=== PATIENT | female | born 1960 | race Caucasian/White ===

== ENCOUNTER 2016-07-13 15:00 | Emergency (ER) | payer SELFPAY ==
[2016-07-13 15:10] VITALS: BP 144/86; BMI 19.8
--- NOTE | 2016-07-13 17:08 | DR.GENAD ---
HPI - PCP Primary Care Physician: NFD - Complaint/Symptoms Chief Complaint Doctors Comments: Patient admits to rash on trunk for four months; more recent lesion 1-2 weeks. Patient states that the rash itches. Chief Complaint:: PT C/O BUMPS TO BILAT ARMS, ON FACE AND BUTTOCKS. PT STATES THE BUMPS ON HER BUTTOCKS HAVE BEEN THERE FOR 3 MONTHS. PT ALSO STATES SHE DOESN 'T KNOW WHAT HAPPENED TO HER BUT THE ONES ON HER ARMS JUST CAME UP A WEEK AGO. - Source History Provided: Patient - Mode of Arrival Mode of Arrival: Ambulatory - Timing Onset of Chief Complaint: 07/06/16 PMH - PMH Past Medical History: Yes Past Medical History: Anxiety Past Medical History Comment: [place] Past Surgical History: Yes Surgical History: Hysterectomy, Ortho Surgery, Other - Family History History of Family Medical Conditions: Yes Family Medical History: Cancer - Social History Does patient currently use any type of tobacco product: Yes Have you used tobacco products in the last 12 months: Yes Does any household member use tobacco: Yes Alcohol Use: None Do you use any recreational Drugs:: No Lives With: Significant Other Lives Where: Home - infectious screening In the last 2 months have you had wt loss of >10#?: NO Have you had fever, night sweats or hemotysis?: No Have you traveled outside the country in the last 6 months?: No Isolation: Standard ROS - Review of Systems Eyes: No Symptoms Reported ENTM: No Symptoms Reported Respiratoy: No Symptoms Reported Cardiovascular: No Symptoms Reported Gastrointestinal/Abdominal: No Symptoms Reported Genitourinary: No Symptoms Reported Neurological: No Symptoms Reported Musculoskeletal: No Symptoms Reported Integumentary: Rash (dry macular, papular on trunk and upper extremity) Hematologic/Lymphatic: No Symptoms Reported Endocrine: No Symptoms Reported Psychiatric: No Symptoms Reported All Other Systems: Reviewed and Negative PE - Vital Signs Vitals: Temperature 98.7 F Pulse Rate 98 Respiratory Rate 20 Blood Pressure 144/86 O2 Sat by Pulse Oximetry 97 - General Limitations: No Limitations General Appearance: Alert, In No Apparent Distress - Head Head Exam: Normal Inspection, Atraumatic - Eyes Eye exam: Normal Appearance, PERRL, EOMI - ENT ENT Exam: Normal Exam External Ear Exam: Normal External Inspection TM/Canal Exam: Bilateral Normal Nose Exam: Normal Nose Exam Mouth Exam: Normal Inspection Throat Exam: Normal Inspection - Neck Neck Exam: Normal Inspection - Chest Chest Inspection: Normal Inspection - Respiratory Respiratory Exam: Normal Lung Sounds Bilat Respiratory Exam: Bilateral Clear to Auscultation - Cardiovascular Cardiovascular Exam: Regular Rate - Abdominal Exam Abdominal Exam: Normal Inspection Abdominal Tenderness: negative: RUQ, RLQ, LUQ, LLQ, Epigastrium, Suprapubic, Diffuse, Mild, Moderate, Severe, Other - Extremities Extremities Exam: Other (macular eczematous rash on face, hand and trunk) - Back Back Exam: Normal Inspection - Neurologic Neurological Exam: Alert, Oriented X3, CN II-XII Intact - Psychiatric Psychiatric Exam: Normal Affect - Skin Skin Exam: Warm, Dry, Intact - Diagnosis Discharge Problem: Atopic dermatitis, unspecified Qualifiers: Atopic dermatitis type: atopic neurodermatitis Qualified Code(s): L20.81 - Atopic neurodermatitis - Discharge Plan Condition: Stable - Follow ups/Referrals Follow ups/Referrals: NFD,None [Primary Care Provider] - 3 days - Instructions
[2016-07-13] MEDS ORDERED: TORADOL 30 MG VIAL IM ONE (17:19)
[2016-07-13] MEDS ORDERED: TORADOL 30 MG VIAL ONE (17:22)
== END 2016-07-13 17:41 | disposition home or self-care (01) ==
LOC: ER 15:21
DX: L20.81 Atopic neurodermatitis (principal)
CPT/HCPCS: 96372; 99282; J1885

== ENCOUNTER 2016-08-09 13:20 | Emergency (ER) | payer SELFPAY ==
[2016-08-09 13:25] VITALS: BP 133/73
--- NOTE | 2016-08-09 13:45 | DR.GENAD ---
HPI - PCP Primary Care Physician: NFD - HPI Comment HPI Comment: WORSE TODAY. NO FEVER. - Complaint/Symptoms Chief Complaint Doctors Comments: ABSCESS RIGHT FOREARM TIMES ONE DAY AND LOW BACK PAIN. Chief Complaint:: PT. C/O CHRONIC BACK PAIN AND ALSO PT. HAS AN ABSCESS TO HER RIGHT FOREARM. - Nurses notes reviewed Nurses Notes Review: Yes - Source History Provided: Patient - Mode of Arrival Mode of Arrival: Ambulatory - Timing Onset of Chief Complaint: 08/08/16 Came on: Suddenly - Duration Duration: Constant Duration: Days - Severity Severity: Moderate PMH - PMH Past Medical History: Yes Past Medical History: Anxiety Past Surgical History: Yes Surgical History: Hysterectomy, Ortho Surgery, Other Past Surgical History Comment: NECK - Family History History of Family Medical Conditions: Yes Family Medical History: Cancer - Social History Does patient currently use any type of tobacco product: Yes Have you used tobacco products in the last 12 months: Yes Type of Tobacco Use: Cigarettes How many years tobacco product used: 16 Does any household member use tobacco: No Alcohol Use: None Do you use any recreational Drugs:: No Lives With: Significant Other Lives Where: Home - infectious screening In the last 2 months have you had wt loss of >10#?: NO Have you had fever, night sweats or hemotysis?: No Have you traveled outside the country in the last 6 months?: No Isolation: Standard ROS - Review of Systems Constitutional: No Symptoms Reported. negative: Chills, Fever, Weakness, Fatigue Eyes: No Symptoms Reported. negative: Eye Pain, Discharge ENTM: No Symptoms Reported. negative: Ear Pain, Nose Discharge, Nose Congestion , Throat Pain Respiratoy: No Symptoms Reported Cardiovascular: No Symptoms Reported Gastrointestinal/Abdominal: No Symptoms Reported Genitourinary: No Symptoms Reported Neurological: No Symptoms Reported Musculoskeletal: Back Pain (LOW BACK PAIN), Muscle Pain Integumentary: Other (ABSCESS SIZE GULF BALL RIGHT FOREARM.) Hematologic/Lymphatic: No Symptoms Reported Endocrine: No Symptoms Reported All Other Systems: Reviewed and Negative PE - Vital Signs Vitals: Temperature 97.7 F Pulse Rate 70 Respiratory Rate 17 Blood Pressure 133/73 O2 Sat by Pulse Oximetry 100 - General Limitations: No Limitations General Appearance: Alert - Head Head Exam: Normal Inspection - Eyes Eye exam: Normal Appearance - ENT ENT Exam: Normal External Ear Exam External Ear Exam: Normal External Inspection TM/Canal Exam: Bilateral Normal Nose Exam: Normal Nose Exam Mouth Exam: Normal Inspection Throat Exam: Normal Inspection - Neck Neck Exam: Normal Inspection - Chest Chest Inspection: Symmetric Chest Wall Rise - Respiratory Respiratory Exam: Normal Lung Sounds Bilat Respiratory Exam: Bilateral Clear to Auscultation - Cardiovascular Cardiovascular Exam: Regular Rate, Normal Rhythm, Normal Heart Sounds - Abdominal Exam Abdominal Exam: Normal Bowel Sounds, Soft. negative: Tenderness - Extremities Extremities Exam: Other (ABSCESS RT FOREARM) - Back Back Exam: Paraspinal Tenderness, Vertebral Tenderness - Neurologic Neurological Exam: Alert, Oriented X3 - Psychiatric Psychiatric Exam: Anxious - Skin Skin Exam: Other (ABSCESS RIGHT FOREARM.) MDM - Differential Diagnosis Differential Diagnosis: ABSCESS, CELLULITIS, LOW BACK PAIN Course - Treatment Treatment: SEE ORDERS - Education/Counseling Education/Counseling: Patient, Education Educated On: Treatment, Diagnosis, Needs for Follow Up ROR - Labs Reviewed Laboratory: 08/09/16 14:07 Blood Gram Stain - Final 08/09/16 14:07 Blood Wound Culture - Preliminary Procedures - Incision and Drainage Blade Size: 11 I & D Procedure: betadine prep, sterile dressing applied Progress: I&D DONE USING SIZE 11 BLADE AFTER CLEANING ABSCESS AND NUMBING WITH 1% LIDOCAINE. 3CC PUS WAS DRAIN MIX WITH BLOOD. CULT ONTAIN. - Diagnosis Discharge Problem: Abscess Low back pain Qualifiers: Chronicity: chronic Back pain laterality: unspecified Sciatica presence: without sciatica Qualified Code(s): M54.5 - Low back pain; G89.29 - Other chronic pain Cellulitis Qualifiers: Site of cellulitis: extremity Site of cellulitis of extremity: upper extremity Laterality: right Qualified Code(s): L03.113 - Cellulitis of right upper limb - Discharge Plan Disposition: HOME, SELF-CARE Condition: Stable Prescriptions: Cyclobenzaprine HCl [FLEXERIL 10 MG *] 10 mg PO TID PRN #20 tab PRN Reason: Hydrocortisone (Topical) [Hydrocortisone (Topical) Large Jar] 1 applic EXT TID PRN #454 gm PRN Reason: Rash/Itching Ibuprofen [MOTRIN TAB 600 MG *] 600 mg PO TID PRN #20 tab PRN Reason: Pain/Inflammation Sulfamethoxazole-Trimethoprim [BACTRIM DS TAB 800/160 MG *] 1 tab PO BID #20 tab - Follow ups/Referrals Follow ups/Referrals: NFD,None [Primary Care Provider] - 3 days José Luis Pineda [STAFF PHYSICIAN] - 3 days - Instructions Instructions: Abscess, Cellulitis, Back Pain, Adult, [id number], Eczema Additional Instructions: RETURN TO ED IF WORSE.
[2016-08-09] MEDS ORDERED: XYLOCAINE 1 % (PLAIN) ONE (13:56)
== END 2016-08-09 14:27 | disposition home or self-care (01) ==
LOC: ER 13:20
PROC: 0X9 Anatomical Regions, Upper Extremities, Drainage (ICD-10-PCS; principal; 2016-08-09)
DX: L02.413 Cutaneous abscess of right upper limb (principal); L03.113 Cellulitis of right upper limb; M54.5 Low back pain; G89.29 Other chronic pain
CPT/HCPCS: 87070; 87075; 87205; 99282; J2001

== ENCOUNTER 2016-12-29 10:50 | Emergency (ER) | payer SELFPAY ==
[2016-12-29 11:01] VITALS: BP 136/73
[2016-12-29] MEDS ORDERED: TORADOL 60 MG VIAL IM ONE (11:38)
[2016-12-29] MEDS ORDERED: ROCEPHIN VIAL 1 GM IM ONE (11:39)
[2016-12-29] MEDS ORDERED: TORADOL 60 MG VIAL ONE (11:45)
[2016-12-29] MEDS ORDERED: PHENERGAN INJ 25 MG ONE (11:45)
[2016-12-29] MEDS ORDERED: XYLOCAINE 1 % (PLAIN) ONE (11:45)
--- NOTE | 2016-12-29 11:45 | DR.EXTPAIN ---
HPI - Time seen Time seen: 11:39 - PCP Primary Care Physician: NFD - Complaint/Symptoms Chief Complaint Doctor Comments: Patient complains of pain and swelling right hand and wrist for the past three days. States she has had a paroblem with staph infections before with I&D. states nodule came up on right wrist over night with pain. She denies fever, chills, nausea, vomiting or any recent trauma. Patient states she has chronic back pain and has not been able to find a local doctor to refill her pain medicines. States her tetanus is up to date and had one about 3-4 years ago. She is able to move her right hand but states it hurts. States the pain is 10 of 10. States she has a rash on her thigh that they said was echzma. States the rash on her buttock itches worst at night and she has been using hydrocortisone 1% cream without improvement. Chief Complaint:: PT C/O EDEMA NOTED TO HER RIGHT HAND ,,, A LARGE ABCESS NOTED TO PTS RIGHT WRIST AREA REDENSS NOTED PT HAS A HX OF ABCESSES AND STAPH,, Self Treatment fo Chief Complaint: ADVIL - Nurses notes reviewed Nurses Notes Review: Yes - Source History Provided: Patient - Mode of arrival Mode of Arrival: Ambulatory - Timing Onset of Chief Complaint: 12/26/16 - Context History of: Gout - Associated signs and symptoms Associated Signs and Symptoms: Pain, Swelling PMH - PMH Past Medical History: Yes Past Medical History: Anxiety Past Medical History Comment: CANCER,,, CERVICAL . Past Surgical History: Yes Surgical History: Hysterectomy, Tonsillectomy - Family History History of Family Medical Conditions: Yes Family Medical History: Cancer - Social History Does patient currently use any type of tobacco product: Yes Have you used tobacco products in the last 12 months: Yes Type of Tobacco Use: Cigarettes How many years tobacco product used: 25 Does any household member use tobacco: No Alcohol Use: None Do you use any recreational Drugs:: No Lives With: Family Lives Where: Home - infectious screening In the last 2 months have you had wt loss of >10#?: NO Have you had fever, night sweats or hemotysis?: No Have you traveled outside the country in the last 6 months?: No Isolation: Standard ROS - Review of Systems Constitutional: No Symptoms Reported. negative: See HPI, Chills, Diaphoresis, Fever, Malaise, Weakness, Irritable, Fatigue, Loss of Appetite, Other Eyes: No Symptoms Reported ENTM: No Symptoms Reported. negative: See HPI, Ear Pain, Ear Discharge, Pulling on Ears, Hearing Loss, Nose Pain, Nose Discharge, Epistaxis, Nose Congestion, Mouth Pain, Mouth Swelling, Loose Teeth, Drooling, Throat Pain, Throat Swelling, Ear Foreign Body Respiratoy: No Symptoms Reported Cardiovascular: No Symptoms Reported. negative: See HPI, Chest Pain, Edema, Palpitations, Syncope, Cyanosis, Skin Mottling, Other Gastrointestinal/Abdominal: No Symptoms Reported. negative: See HPI, Abdominal Pain, Constipation, Diarrhea, Nausea, Vomiting, Food Intolerance, Other Genitourinary: No Symptoms Reported. negative: See HPI, Discharge, Dysuria, Frequency, Hematuria, Pain, Bleeding, Other Neurological: No Symptoms Reported, Anxiety, Emotional Problems. negative: See HPI, Depressed, Headache, Numbness, Paresthesia, Pre-existing Deficit, Seizure, Tingling, Tremors, Weakness, Dizziness, Problems Walking, Speech Problem, Other Musculoskeletal: No Symptoms Reported, Right, Wrist (3 cm nodule ) Integumentary: Lesions (3cm pustular right wrist with slight erythema dorsal right hand; no discharge) Hematologic/Lymphatic: No Symptoms Reported Endocrine: No Symptoms Reported Psychiatric: No Symptoms Reported. negative: See HPI, Anxiety, Depression, Hallucinations, Excessive crying, Suicidal, Other PE - Vital Signs Vitals: Temperature 97.8 F Pulse Rate 90 Respiratory Rate 22 Blood Pressure 136/73 O2 Sat by Pulse Oximetry 100 - General Limitations: No Limitations General Appearance: Alert, In Distress (mild). negative: In No Apparent Distress, Appears Intoxicated, Anxious, Lethargic, Obtunded, Obese, Cachectic, Other - Head Head Exam: Normal Inspection, Atraumatic, Normocephalic - Eyes Eye exam: Normal Appearance, PERRL, EOMI. negative: Scleral Icterus, Conjunctival Injection, Nystagmus, Miosis, Mydrasis, Periorbital Swelling, Periorbital Tenderness, Other - ENT ENT Exam: Normal Exam, Normal Oropharynx, Normal External Ear Exam, Mucous Membranes Moist, TM's Normal Bilaterally - Neck Neck Exam: Normal Inspection, Full ROM, Trachea Midline. negative: Tenderness, Meningismus, Lymphadenopathy, Thyromegaly, Other - Chest Chest Inspection: Normal Inspection, Symmetric Chest Wall Rise. negative: Tenderness, Rash, Abscess, Other - Respiratory Respiratory Exam: Normal Lung Sounds Bilat. negative: Accessory Muscle Use, Chest Wall Tenderness, Prolonged Expiratory Phase, Respiratory Distress, Stridor , Other Respiratory Exam: Bilateral Clear to Auscultation - Cardiovascular Cardiovascular Exam: Regular Rate, Normal Rhythm, Normal Heart Sounds. negative : Bradycardia, Tachycardia, Irregular Rhythm, Systolic Murmur, Diastolic Murmur , Rubs, Gallop, Clicks, JVD, +S1, +S2, +S3, +S4, Other - Abdominal Exam Abdominal Exam: Normal Inspection, Normal Bowel Sounds, Soft. negative: Distention, Tenderness, Guarding, Rebound, Rigidity, Dimnished Bowel Sounds, Hyperactive Bowel Sounds, Hypoactive Bowel Sounds, Organomegaly, Trauma, Incision, Ascites, Mass, Bruit, Pulsatile Mass, Hernia, Other Abdominal Tenderness: negative: RUQ, RLQ, LUQ, LLQ, Epigastrium, Suprapubic, Diffuse, Mild, Moderate, Severe, Other - Extremities Extremities Exam: Normal Inspection, Full ROM, Tenderness (right wrist with 3 cm nodule, tender), Normal Capillary Refill. negative: Edema, Joint Swelling, Calf Tenderness - Upper Extremities Shoulder Exam: Normal Inspection, Full ROM. negative: Tenderness, Swelling, Abrasion, Laceration, Ecchymosis, Deformity, Crepitus, Dislocation, Erythema, Tenderness over AC Joint, Other Arm Exam: Normal Inspection, Full ROM. negative: Tenderness, Swelling, Abrasion , Laceration, Ecchymosis, Deformity, Crepitus, Erythema, Other Elbow Exam: Normal Inspection, Full ROM. negative: Tenderness, Swelling, Abrasion, Laceration, Ecchymosis, Deformity, Crepitus, Dislocation, Erythema, Effusion, Pain w/ pronation, Pain w/ Spuination, Tenderness over Radial Head, Other Forearm Exam: Normal Inspection, Full ROM, Tenderness (right wrist with 3cm pustular), Swelling (slight swelling; good range of motion of fingers; no swelling of fingers), Erythema. negative: Abrasion, Laceration, Ecchymosis, Deformity, Crepitus, Dislocation, Other Hand Exam: Normal Inspection, Full ROM, Tenderness (right wrist), Erythema. negative: Swelling, Abrasion, Laceration, Ecchymosis, Skin Avulsion, Deformity, Crepitus, Dislocation, Amputation, Nail Avulsion, Subungual Hematoma, Other Neuromotor Exam: Normal Exam, Thumb Opposition (normal) Neurosensory Exam: Normal Exam, 2-Point Discrimination Hand Tendon Exam: negative: Flexor Digitorium Profundus (Location), Flexor Digitorium Superficialis (Location) (normal), Extensor Tendon (Location), Other Upper Ext. Vascular Exam: Capillary Refill (normal), Radial Pulse (normal) - Lower Extremities Hip/Pelvis Exam: Normal Inspection, Full ROM. negative: Tenderness, Swelling, Abrasion, Laceration, Ecchymosis, Deformity, Crepitus, Dislocation, Erythema, External Rotation, Internal Rotation, Shortening, Pelvis Stable, Other Upper Leg Exam: Normal Inspection, Full ROM. negative: Tenderness, Swelling, Abrasion, Laceration, Ecchymosis, Deformity, Crepitus, Dislocation, Erythema, Other Knee Exam: Normal Inspection, Full ROM. negative: Tenderness, Swelling, Abrasion, Laceration, Ecchymosis, Deformity, Crepitus, Dislocation, Erythema, Effusion, Anterior Drawer Sign, Posterior Draw Sign, Pain with Valgus, Laxity with Valgus, Pain with Varus, Knee Extension Intact, Other Lower Leg Exam: Normal Inspection, Full ROM. negative: Tenderness, Swelling, Abrasion, Laceration, Deformity, Ecchymosis, Crepitus, Dislocation, Erythema, Palpable Cord, Homans' Sign, Achilles Tendon Intact, Other Ankle Exam: Normal Inspection, Full ROM. negative: Tenderness, Swelling, Abrasion, Laceration, Ecchymosis, Deformity, Crepitus, Dislocation, Erythema, Tenderness over talofibular lig, Anterior Draw Sign, Other Neurovascular/Tendon Exam: Normal Capillary Refill, Normal 2-point discrimination, Normal Fine/Light Touch Gait Exam: Not Tested/Not Observed - Back Back Exam: Normal Inspection, Full ROM, Tenderness (complains of lower back tenderness on movement) - Neurological Neurological Exam: Alert, Oriented X3, CN II-XII Intact, Reflexes Normal. negative: Normal Gait (gait not tested) - Psychiatric Psychiatric Exam: Normal Affect, Normal Mood, Anxious. negative: Depressed, Agitated, Flat Affect, Manic, Homicidal Ideation, Suicidal Ideation, Other - Skin Skin Exam: Warm, Dry, Intact, Normal Color, Rash (left buttoch with papules, excoriation, macular rash on buttock and left upper thigh), Erythema (right hand ) Type of Lesion: negative: Rash, Abscess, Laceration, Foreign Body, Bite/Sting, Abrasion, Other Distribution: negative: Generalized, Involves Palms/Soles, Head, Face, Neck, Thorax, Chest, Back, Abdomen, Genitals, LUE, LLE, RUE, RLE, Other Description: negative: Size, Tenderness, Erythematous, Swelling, Macular, Papular, Vesicular, Blisters, Cofluent, Bullous, Petechial, Purpuric, Urticarial , Crusting, Discharge, Fluctuant, Indurated, Other Procedures - Incision and Drainage Site: right wrist 3 cm pusular Blade Size: 11 I & D Procedure: betadine prep, sterile drapes applied, sterile dressing applied , no gauze wick placed (no packing because over wrist; three puncture sites performed.) - Diagnosis Discharge Problem: cellulitis right wrist, Abscess of right hand excluding fingers and thumb, Cellulitis, Folliculitis, Possible scabies - Discharge Plan Disposition: 01 HOME, SELF-CARE Condition: Stable Prescriptions: Cephalexin [KEFLEX CAP 500 MG *] 500 mg PO TID #30 cap Ibuprofen 800 mg PO TID PRN #30 tablet PRN Reason: Pain/Inflammation Permethrin [Elimite] 5 % EX DAILY PRN #60 cre PRN Reason: Sulfamethoxazole-Trimethoprim [BACTRIM DS TAB 800/160 MG *] 1 tab PO BID #20 tab - Follow ups/Referrals Follow ups/Referrals: NFD,None [Primary Care Provider] - 3 days LEISA BARTH [STAFF PHYSICIAN] - 3 days - Instructions Instructions: Abscess, [id number], Cellulitis, Adult, [id number], Pruritus
[2016-12-29] MEDS ORDERED: ROCEPHIN VIAL 1 GM ONE (11:46)
[2016-12-29] MEDS: PHENERGAN INJ 25 MG IM ONE ×2 (11:56→12:00)
--- NOTE | 2016-12-29 12:50 | RAD ---
HISTORY: Edema, abscess Study: Three views right wrist Comparison: None Findings: Normal radiocarpal alignment with degenerative changes at the radiocarpal joint noted. There is widen ing of the scapholunate interval suggesting chronic ligamentous injury. No acute fracture or dislocat ion. There is soft tissue swelling along the dorsal/ulnar aspect of the wrist. No soft tissue gas or foreign body identified. IMPRESSION: 1. Soft tissue swelling along the dorsal/ulnar aspect of the wrist. No soft tissue gas or foreign bod y identified. Reported By:
== END 2016-12-29 12:43 | disposition home or self-care (01) ==
LOC: ER 10:50
PROC: 0X9J0ZZ Drainage of Right Hand, Open Approach (ICD-10-PCS; principal; 2016-12-29)
DX: L03.113 Cellulitis of right upper limb (principal); L02.511 Cutaneous abscess of right hand; L73.9 Follicular disorder, unspecified
CPT/HCPCS: 73100; 87070; 87075; 87205; 96372; 96374; 99282; 99283; J0696; J1885; J2001; J2550

== ENCOUNTER 2016-12-30 12:24 | Emergency (ER) | payer SELFPAY ==
[2016-12-30 12:28] VITALS: BP 148/81; BMI 21.1
== END 2016-12-30 12:59 | disposition left against medical advice (07) ==
LOC: ER 12:30
DX: R50.9 Fever, unspecified (principal)
CPT/HCPCS: 99281

== ENCOUNTER 2018-07-25 03:26 | Observation (INO) ==
[2018-07-25] MEDS ORDERED: NS 1000 ML 1,000 ML ONE (03:34)
[2018-07-25] MEDS ORDERED: NS 1000 ML 1,000 ML IV ONE (03:36)
--- NOTE | 2018-07-25 03:47 | DR.DING ---
HPI Time Seen Time Seen by Provider: 07/25/18 03:29 Source History Provided: Parent, Friend and EMS Mode of Arrival Mode of Arrival: EMS Context History of: Depression Severity Severity: None PMH PMH Past Surgical History: Yes Surgical History: Hysterectomy Family History Family Medical History: Cancer Social History Do you use any recreational Drugs:: No ROS Review of Systems Constitutional: See HPI, Weakness and Other (AMS.); negative Fever Eyes: No Symptoms Reported ENTM: No Symptoms Reported and See HPI Respiratoy: See HPI and Short of Breath; negative Orthopnea Cardiovascular: No Symptoms Reported Gastrointestinal/Abdominal: No Symptoms Reported Genitourinary: No Symptoms Reported Neurological: See HPI, Weakness and Other (AMS); negative Seizure Musculoskeletal: See HPI and Back Pain Integumentary: No Symptoms Reported and See HPI Hematologic/Lymphatic: No Symptoms Reported Endocrine: No Symptoms Reported Psychiatric: No Symptoms Reported All Other Systems: Reviewed and Negative PE Vital signs Vitals: Temperature 98.5 F Pulse Rate 166 Respiratory Rate 33 Blood Pressure [Left Arm] 151/81 Blood Pressure 139/68 O2 Sat by Pulse Oximetry 86 General Limitations: No Limitations General Appearance: Alert and In Distress Eyes Eye exam: PERRL; negative Scleral Icterus and Conjunctival Injection Pupils: Regular, Round: Bilateral Sclera/Conjunctival: Normal Inspection: Bilateral ENT ENT Exam: Normal External Ear Exam Neck Neck Exam: Normal Inspection and Trachea Midline; negative Tenderness and Lymphadenopathy Chest Chest Inspection: Normal Inspection and Symmetric Chest Wall Rise; negative Ten derness Respiratory Respiratory Exam: Normal Lung Sounds Bilat; negative Accessory Muscle Use, Chest Wall Tenderness and Respiratory Distress Respiratory Exam: Bilateral: Clear to Auscultation Cardiovascular Cardiovascular Exam: Regular Rate and Normal Rhythm Abdominal Exam Abdominal Exam: Normal Inspection, Normal Bowel Sounds and Soft; negative Tenderness Extremities Extremities Exam: Normal Inspection and Normal Capillary Refill; negative Tenderness and Calf Tenderness Back Back Exam: Normal Inspection Neurologic Neurological Exam: Alert and Other (AMS.) Patient Oriented To: Person Speech: negative Fluid Speech (SPEECH SLOW.) Cranial Nerve Exam: Gag reflex (XI): Normal Psychiatric Psychiatric Exam: Normal Affect and Normal Mood Skin Skin Exam: Warm, Dry, Intact and Normal Color MDM Differential Diagnosis Differential Diagnosis: Substance abuse COURSE Treatment Treatment: SEE ORDERS. Consultation Consultation Comments: DISCUSS PATIENT WITH DR. BARTH. HE WILL ADMIT PATIENT. ROR Labs Reviewed Laboratory Results Reviewed?: Yes Result Diagrams: 07/26/18 04:08 07/26/18 04:08 Laboratory: WBC 16.5 X10^3/uL (3.6-10.0) H 07/26/18 04:08 RBC 3.53 X10^6/uL (3.5-5.4) 07/26/18 04:08 Hgb 10.2 g/dL (12.0-16.0) L 07/26/18 04:08 Hct 30.9 % (36.0-47.0) L 07/26/18 04:08 MCV 87.5 fL (80.0-100.0) 07/26/18 04:08 MCH 29.0 pg (27.0-34.0) 07/26/18 04:08 MCHC 33.2 g/dL (33.0-35.0) 07/26/18 04:08 RDW 16.0 % (11.6-16.5) 07/26/18 04:08 Plt Count 303 X10^3/uL (150.0-450.0) 07/26/18 04:08 Plt Count Comment Adequate (ADEQUATE) 07/26/18 04:08 MPV 6.9 fL (7.4-11.0) L 07/26/18 04:08 Neut % (Auto) 91.6 % (42.0-75.0) H 07/26/18 04:08 Lymph % (Auto) 6.0 % (21.0-51.0) L 07/26/18 04:08 [place] % (Auto) 2.1 % (0.0-13.0) 07/26/18 04:08 Eos % (Auto) 0.0 % (0.9-2.9) L 07/26/18 04:08 Baso % (Auto) 0.3 % (0.2-1.0) 07/26/18 04:08 Neut # (Auto) 15.1 x10^3/uL (2.2-4.8) H 07/26/18 04:08 Lymph # (Auto) 1.0 X10^3/uL (1.3-2.9) L 07/26/18 04:08 [place] # (Auto) 0.3 x10^3/uL (0.3-0.8) 07/26/18 04:08 Eos # (Auto) 0.0 x10^3/uL (0.0-0.2) 07/26/18 04:08 Baso # (Auto) 0.1 X10^3/uL (0.0-0.1) 07/26/18 04:08 Absolute Nucleated RBC 0.0 /100WBC 07/26/18 04:08 Total Counted 100 07/26/18 04:08 Neutrophils % (Manual) 98 % (39-76) H 07/26/18 04:08 Lymphocytes % (Manual) Not Reportable 07/26/18 04:08 Monocytes % (Manual) 2 % (4-9) L 07/26/18 04:08 Plt Morphology Comment Normal (NORMAL) 07/26/18 04:08 RBC Morphology Normal (NORMAL) 07/26/18 04:08 Sodium 142 mmol/L (136-145) 07/26/18 04:08 Corrected Sodium TNP 07/26/18 04:08 Potassium 4.0 mmol/L (3.5-5.1) 07/26/18 04:08 Chloride 109 mmol/L (98-107) H 07/26/18 04:08 Carbon Dioxide 21.3 mmol/L (21-32) 07/26/18 04:08 BUN 19 mg/dL (7-18) H 07/26/18 04:08 Creatinine 0.70 mg/dL (0.55-1.02) 07/26/18 04:08 Est GFR (MDRD) Af Amer > 60 (>60) 07/26/18 04:08 Est GFR (MDRD) Non-Af > 60 (>60) 07/26/18 04:08 Glucose 97 mg/dL (65-99) 07/26/18 04:08 Calcium 7.8 mg/dL (8.5-10.1) L 07/26/18 04:08 Corrected Calcium 8.9 mg/dL (8.5-10.1) 07/26/18 04:08 Total Bilirubin 0.40 mg/dL (0.2-1.0) 07/26/18 04:08 AST 377 Units/L (15-37) H 07/26/18 04:08 ALT 358 Units/L (12-78) H 07/26/18 04:08 Alkaline Phosphatase 82 Units/L (46-116) 07/26/18 04:08 Creatine Kinase 44 Units/L (26-192) 07/25/18 16:20 CK-MB (CK-2) < 1.0 ng/mL (0-4.0) 07/25/18 16:20 CK/CKMB % Calc 2.3 % (<4) 07/25/18 16:20 Troponin I 0.03 ng/mL (0-1.5) 07/25/18 16:20 Total Protein 6.2 g/dL (6.4-8.2) L 07/26/18 04:08 Albumin 2.6 g/dL (3.4-5.0) L 07/26/18 04:08 Globulin 3.6 g/dL (2.5-4.5) 07/26/18 04:08 Albumin/Globulin Ratio 0.7 Ratio (1.1-2.1) L 07/26/18 04:08 Specimen Type Random urine 07/25/18 09:51 Urine Color Yellow (YELLOW) 07/25/18 09:51 Urine Appearance Clear (CLEAR) 07/25/18 09:51 Urine pH 5.0 (5.0 - 8.0) 07/25/18 09:51 Ur Specific Cucumber 1.010 (1.000-1.030) 07/25/18 09:51 Urine Protein 2+ (NEGATIVE) 07/25/18 09:51 Urine Glucose (UA) Negative (NEGATIVE) 07/25/18 09:51 Urine Ketones Negative (NEGATIVE) 07/25/18 09:51 Urine Occult Blood 1+ (NEGATIVE) 07/25/18 09:51 Urine Nitrite Negative (NEGATIVE) 07/25/18 09:51 Urine Bilirubin Negative (NEGATIVE) 07/25/18 09:51 Urine Urobilinogen Normal (NORMAL) 07/25/18 09:51 Ur Leukocyte Esterase 1+ (NEGATIVE) 07/25/18 09:51 Urine RBC 0-2 /HPF (NONE SEEN) 07/25/18 09:51 Urine WBC 0-2 /HPF (NONE SEEN) 07/25/18 09:51 Ur Squamous Epith Cells Moderate /HPF (NEGATIVE) 07/25/18 09:51 Calcium Oxalate Crystal Few /HPF (NEGATIVE) 07/25/18 09:51 Amorphous Sediment Trace /HPF (NEGATIVE) 07/25/18 09:51 Urine Bacteria Trace /HPF (NEGATIVE) 07/25/18 09:51 Hyaline Casts Few /LPF (NEGATIVE) 07/25/18 09:51 Urine Mucus Moderate /HPF (NEGATIVE) 07/25/18 09:51 Ur Culture Indicated? No/not indicated 07/25/18 09:51 Urine Opiates Screen Positive (NEG=<300) A 07/25/18 09:51 Urine Methadone Screen Negative (NEG=<300) 07/25/18 09:51 Ur Barbiturates Screen Negative (NEG=<200) 07/25/18 09:51 Ur Phencyclidine Scrn Negative (NEG=<25) 07/25/18 09:51 Ur Amphetamines Screen Negative (NEG=<1000) 07/25/18 09:51 U Benzodiazepines Scrn Negative (NEG=<200) 07/25/18 09:51 Urine Cocaine Screen Negative (NEG=<300) 07/25/18 09:51 U Marijuana (THC) Screen Negative (NEG=<50) 07/25/18 09:51 Diagnosis Discharge Problem: Overdose of opiate antagonist Qualifiers: Encounter type: initial encounter Injury intent: accidental or unintentional Qualified Code(s): T50.7X1A - Poisoning by analeptics and opioid receptor antagonists, accidental (unintentional), initial encounter Altered mental status Qualifiers: Altered mental status type: unspecified Qualified Code(s): R41.82 - Altered mental status, unspecified
[2018-07-25 04:28] LABS: BASOPHILS % (AUTO) 0.2 % (0.2-1.0); EOSINOPHILS # (AUTO) 0.1 x10^3/uL (0.0-0.2); EOSINOPHILS % (AUTO) 0.4 % (0.9-2.9); HEMATOCRIT 34.3 % (36.0-47.0); HEMOGLOBIN 11.3 g/dL (12.0-16.0); LYMPHOCYTES # (AUTO) 1.3 X10^3/uL (1.3-2.9); LYMPHOCYTES % (AUTO) 9.5 % (21.0-51.0); MEAN CORPUSCULAR HEMOGLOBIN 28.7 pg (27.0-34.0); MEAN CORPUSCULAR VOLUME 86.9 fL (80.0-100.0); MEAN PLATELET VOLUME 6.2 fL (7.4-11.0); MONOCYTES # (AUTO) 0.1 x10^3/uL (0.3-0.8); MONOCYTES % (AUTO) 0.4 % (0.0-13.0); NEUTROPHILS # (AUTO) 12.5 x10^3/uL (2.2-4.8); NEUTROPHILS % (AUTO) 89.5 % (42.0-75.0); PLATELET COUNT 378 X10^3/uL (150.0-450.0); RED BLOOD COUNT 3.94 X10^6/uL (3.5-5.4); RED CELL DISTRIBUTION WIDTH 15.7 % (11.6-16.5)
[2018-07-25 04:44] LABS: BLOOD UREA NITROGEN 25 mg/dL (7-18); CALCIUM 8.8 mg/dL (8.5-10.1); CARBON DIOXIDE 25.2 mmol/L (21-32); CHLORIDE 102 mmol/L (98-107); CREATININE 1.32 mg/dL (0.55-1.02); SODIUM 137 mmol/L (136-145); TROPONIN I < 0.02 ng/mL (0-1.5); eGFR NON BLACK RACES 44 (>60)
[2018-07-25 04:48] LABS: ALANINE AMINOTRANSFERASE 158 Units/L (12-78); ALBUMIN 2.9 g/dL (3.4-5.0); ALKALINE PHOSPHATASE 111 Units/L (46-116); ASPARTATE AMINO TRANSFERASE 171 Units/L (15-37); CKMB % 3.7 % (<4); COR CA(FOR HYPOALB) 9.7 mg/dL (8.5-10.1); CREATINE KINASE 27 Units/L (26-192); CREATINE KINASE MB < 1.0 ng/mL (0-4.0); TOTAL PROTEIN 6.9 g/dL (6.4-8.2)
--- NOTE | 2018-07-25 04:51 | RAD ---
AP Chest Indication:Medication overdose Comparison:None available Findings: The trachea is midline. The cardiac silhouette is unremarkable. The lungs are clear without focal infiltrate or effusion. The bony thorax is unremarkable. IMPRESSION: 1. No acute cardiopulmonary abnormality. Reported By:
[2018-07-25] MEDS: NS 1000 ML 1,000 ML IV SCH ×2 (06:43→16:18)
--- NOTE | 2018-07-25 06:48 | RAD ---
HISTORY: Abdominal pain Study: KUB Comparison: None Findings: The abdominal gas pattern is nonspecific and nonobstructive. No abnormal masses or abnormal calcifications are identified. There is a question of hepatomegaly. Correlation with physical examination is recommended. The regional skeleton is intact. IMPRESSION: No definite acute abdominal findings Suspect hepatomegaly Reported By:
[2018-07-25 10:24] LABS: CREATINE KINASE 29 Units/L (26-192); CREATINE KINASE MB < 1.0 ng/mL (0-4.0); TROPONIN I 0.06 ng/mL (0-1.5)
[2018-07-25 10:26] LABS: CKMB % 3.5 % (<4)
[2018-07-25 10:41] LABS: BILIRUBIN,URINE NEGATIVE (NEGATIVE); BLOOD/HEMOGLOBIN,URINE 1+ (NEGATIVE); GLUCOSE, URINE NEGATIVE (NEGATIVE); KETONES,URINE NEGATIVE (NEGATIVE); LEUKOCYTE ESTERASE ,URINE 1+ (NEGATIVE); NITRITES,URINE NEGATIVE (NEGATIVE); PROTEIN,URINE 2+ (NEGATIVE); UROBILINOGEN,URINE NORMAL (NORMAL)
[2018-07-25 10:43] LABS: APPEARANCE,URINE CLEAR (CLEAR); COLOR,URINE YELLOW (YELLOW)
[2018-07-25 11:11] LABS: AMORPHOUS SEDIMENT,UR TRACE /HPF (NEGATIVE); BACTERIA,URINE TRACE /HPF (NEGATIVE); CALCIUM OXALATE CRYSTALS,UR FEW /HPF (NEGATIVE); HYALINE CASTS, URINE FEW /LPF (NEGATIVE); MUCUS,URINE MODERATE /HPF (NEGATIVE); RBC,URINE 0-2 /HPF (NONE SEEN); SQUAMOUS EPITHELIAL CELL,UR MODERATE /HPF (NEGATIVE)
[2018-07-25 12:29] VITALS: BMI 19.3
--- NOTE | 2018-07-25 12:46 | DR.H&P ---
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 PT IS RESPONDING ON ASSESSMENT IN ER. CO LONG HX OF BACK PAIN. PT DENIES ANY DM, CAD, HTN. REPORTS DAILY SMOKER. PT DENIES ANY SUICIDAL OR HOMOCIDAL IDEATIONS - Past Medical History Past Medical History: Anxiety, Arthritis - Past Surgical History Surgical History: Hysterectomy - Family History Family Medical History: Cancer - Social History Does patient currently use any type of tobacco product: Yes Have you used tobacco products in the last 12 months: Yes Type of Tobacco Use: Cigarettes Does any household member use tobacco: Yes Alcohol Use: None Drug Use: Prescription Drugs - Medications Home Medications: No Known Drug Allergies Allergy (Verified 12/30/16 12:25) CONTINUE taking the following medications cyclobenzaprine 10 mg PO TID 07/25/18 [History] gabapentin 300 mg PO TID 07/25/18 [History] ketorolac 10 mg PO QID 07/25/18 [History] naproxen 500 mg PO BID 07/25/18 [History] prednisone 40 mg PO DAILY 07/25/18 [History] tizanidine 2 mg PO HS 07/25/18 [History] - Review of Systems Constitutional: Weakness, Malaise Eyes: No Symptoms Reported ENT: No Symptoms Reported Respiratory: Shortness of Breath Cardiovascular: No Symptoms Reported Gastrointestinal: Constipation Genitourinary: No Symptoms Reported Musculoskeletal: Back Pain Skin: No Symptoms Reported Neurological: Weakness, Confusion - Physical Exam Vital Signs: Temperature 99.9 F Pulse Rate 95 Respiratory Rate 22 Blood Pressure [Left Arm] 151/81 Blood Pressure 96/53 O2 Sat by Pulse Oximetry 96 Oriented: Person Eyes: Normal Ear: Normal Throat: Normal Respiratory: RLL Diminished, LLL Diminished Cardiovascular: Tachycardia : Normal Auscultation: Bowel Sounds: Normal Palpation: Normal Tenderness: Normal Skin: Decreased Turgur Musculoskeletal: Back:Thoracic, Back:Lumbar Speech Pattern: Delayed, Slurred - Assessment/Plan (1) Opioid overdose Status: Acute Plan: CONTINUOUS CARDIAC MONITORING, IV HYDRATION. SUPPLEMENTAL O2, BP CONTROL. SERIAL CE AND EKG (2) IV drug user Status: Acute - Allergies Allergies/Adverse Reactions: Allergies Allergy/AdvReac Type Severity Reaction Status Date / Time No Known Drug Allergies Allergy Verified 12/30/16 12:25
[2018-07-25] MEDS: NEURONTIN CAP 300 MG PO SCH ×2 (16:16→21:08)
[2018-07-25] MEDS: PREDNISONE TAB 20 MG PO SCH (16:16)
[2018-07-25] MEDS: NAPROSYN PO SCH ×2 (16:16→21:09)
[2018-07-25 17:10] LABS: CKMB % 2.3 % (<4); CREATINE KINASE 44 Units/L (26-192); CREATINE KINASE MB < 1.0 ng/mL (0-4.0); TROPONIN I 0.03 ng/mL (0-1.5)
[2018-07-25] MEDS ORDERED: ZANAFLEX PO SCH (21:00)
[2018-07-26] MEDS: NS 1000 ML 1,000 ML IV SCH (01:10)
[2018-07-26 05:41] LABS: BASOPHILS # (AUTO) 0.1 X10^3/uL (0.0-0.1); BASOPHILS % (AUTO) 0.3 % (0.2-1.0); HEMATOCRIT 30.9 % (36.0-47.0); HEMOGLOBIN 10.2 g/dL (12.0-16.0); MEAN CORPUSCULAR HGB CONC 33.2 g/dL (33.0-35.0); MEAN CORPUSCULAR VOLUME 87.5 fL (80.0-100.0); MEAN PLATELET VOLUME 6.9 fL (7.4-11.0); MONOCYTES # (AUTO) 0.3 x10^3/uL (0.3-0.8); MONOCYTES % (AUTO) 2.1 % (0.0-13.0); NEUTROPHILS # (AUTO) 15.1 x10^3/uL (2.2-4.8); NEUTROPHILS % (AUTO) 91.6 % (42.0-75.0); PLATELET COUNT 303 X10^3/uL (150.0-450.0); RED BLOOD COUNT 3.53 X10^6/uL (3.5-5.4); WHITE BLOOD COUNT 16.5 X10^3/uL (3.6-10.0)
[2018-07-26] MEDS: NEURONTIN CAP 300 MG PO SCH (05:49)
[2018-07-26 06:06] LABS: ALANINE AMINOTRANSFERASE 358 Units/L (12-78); ALBUMIN 2.6 g/dL (3.4-5.0); ALKALINE PHOSPHATASE 82 Units/L (46-116); ASPARTATE AMINO TRANSFERASE 377 Units/L (15-37); BLOOD UREA NITROGEN 19 mg/dL (7-18); CALCIUM 7.8 mg/dL (8.5-10.1); CARBON DIOXIDE 21.3 mmol/L (21-32); CHLORIDE 109 mmol/L (98-107); COR CA(FOR HYPOALB) 8.9 mg/dL (8.5-10.1); SODIUM 142 mmol/L (136-145); TOTAL PROTEIN 6.2 g/dL (6.4-8.2); eGFR NON BLACK RACES > 60 (>60)
[2018-07-26 06:39] LABS: PLATELET MORPHOLOGY COMMENT NORMAL (NORMAL)
[2018-07-26] MEDS: NAPROSYN PO SCH (08:52)
[2018-07-26] MEDS: PREDNISONE TAB 20 MG PO SCH (08:52)
[2018-07-26 09:25] VITALS: BP 139/68
== END 2018-07-26 09:10 | disposition left against medical advice (07) ==
LOC: MED/SURG 03:27 → ER 03:27 → ICU 11:00
PROVIDERS: ADMIT Internal Medicine; ATTEND Internal Medicine
DX: R06.02 Shortness of breath; D72.828 Other elevated white blood cell count; R94.4 Abnormal results of kidney function studies; T40.2X1A Poisoning by other opioids, accidental (unintentional), initial encounter; F19.90 Other psychoactive substance use, unspecified, uncomplicated; R53.1 Weakness; R41.82 Altered mental status, unspecified; R74.8 Abnormal levels of other serum enzymes; M54.89 Other dorsalgia; R94.31 Abnormal electrocardiogram [ECG] [EKG]; Z72.0 Tobacco use
CPT/HCPCS: 36415; 71010; 71045; 74000; 74018; 80053; 80307; 81001; 82550; 82553; 84484; 85025; 93005; 96365; 96367; 99285; G0378; G0434; J7030; J7512

== ENCOUNTER 2019-08-17 06:29 | Inpatient (IN) ==
[2019-08-17 06:35] VITALS: BMI 15.3
--- NOTE | 2019-08-17 07:10 | DR.EXTPAIN ---
HPI Time seen Time Seen by Provider: 08/17/19 07:09 PCP Primary Care Physician: becca HPI Comment HPI Comment: PATIENT IS 59YR OLD FEMALE IN ER WITH SWELLING, REDNESS AND ABSCESS FOREARM TIMES ONE MINTH THAT IS GETTING WORSE. NO DRAINAGE. SWELLING IS TENSE AND PRESSURE IS INCREASING. PAIN IS SHARP, 8/10 RADIATING TO RIGHT HAND. NO FEVER. DENIES USE OF IV DRUGS. DENIES FEVER. Complaint/Symptoms Chief Complaint Doctor Comments: REDNESS, SWELLING AND ABSCESS RIGHT FOREARM TIMES ONE MONTH. Chief Complaint:: pt has had a cyst on her aright arm for over a month and has a appointment to see dr lucia tomorrow but she stated the pain is to bad. COVID-19 Coronavirus risk:travel/contact w/high risk person: No Has patient experienced Coronavirus symptoms: No Source History Provided: Patient Mode of arrival Mode of Arrival: Ambulatory Timing Onset of Chief Complaint: 07/15/19 Context History of: None Associated signs and symptoms Associated Signs and Symptoms: Pain, Swelling and Other (ABSCESS AND CELLULITIS RT FOREARM.) PMH PMH Past Medical History: Yes Past Medical History: Anxiety and Arthritis Past Surgical History: Yes Surgical History: Hysterectomy Family History History of Family Medical Conditions: Yes Family Medical History: Cancer Social History Does patient currently use any type of tobacco product: Yes Have you used tobacco products in the last 12 months: Yes Type of Tobacco Use: Cigarettes How many years tobacco product used: 40 Does any household member use tobacco: Yes Alcohol Use: None Do you use any recreational Drugs:: No Lives With: Family Lives Where: Home Travel Risk Coronavirus risk:travel/contact w/high risk person: No Has patient experienced Coronavirus symptoms: No Infectious screening In the last 2 months have you had wt loss of >10#?: NO Have you had fever, night sweats or hemotysis?: No Have you traveled outside the country in the last 6 months?: No Isolation: Standard ROS Review of Systems Constitutional: See HPI, Weakness and Fatigue; negative Fever Eyes: No Symptoms Reported and See HPI; negative Blurred Vision and Diplopia ENTM: No Symptoms Reported and See HPI; negative Nose Discharge and Nose Congestion Respiratoy: See HPI and Short of Breath; negative Moist Cough and Wheezing Cardiovascular: No Symptoms Reported and See HPI; negative Chest Pain Gastrointestinal/Abdominal: No Symptoms Reported and See HPI; negative Abdominal Pain, Nausea and Vomiting Genitourinary: No Symptoms Reported, See HPI, Dysuria, Frequency and Hematuria Neurological: See HPI, Headache and Weakness; negative Dizziness Musculoskeletal: No Symptoms Reported and See HPI; negative Back Pain Integumentary: See HPI and Wound (TWO ABSCESSES ON RIGHT FOREARM WITH REDNESS AND SWELLING OF FOREARM. ABSCESS IS TENSE AND UNSER PRESSURE.) Hematologic/Lymphatic: No Symptoms Reported and See HPI Endocrine: No Symptoms Reported and See HPI; negative Increased Thirst and Increased Urine Psychiatric: No Symptoms Reported and See HPI All Other Systems: Reviewed and Negative PE Vital Signs Vitals: Temperature 98.7 F Pulse Rate [Left Brachial] 81 Pulse Rate 97 Respiratory Rate 16 Blood Pressure [Left Arm] 109/79 Blood Pressure 88/54 O2 Sat by Pulse Oximetry 98 General Limitations: No Limitations General Appearance: Alert and In No Apparent Distress Head Head Exam: Normal Inspection and Atraumatic Eyes Eye exam: Normal Appearance, PERRL and EOMI; negative Scleral Icterus and Conjunctival Injection ENT ENT Exam: Normal Exam, Normal Oropharynx, Normal External Ear Exam and TM's Normal Bilaterally Neck Neck Exam: Normal Inspection and Trachea Midline; negative Tenderness and Lymphadenopathy Chest Chest Inspection: Normal Inspection and Symmetric Chest Wall Rise; negative Tenderness Respiratory Respiratory Exam: Normal Lung Sounds Bilat; negative Accessory Muscle Use, Chest Wall Tenderness and Respiratory Distress Respiratory Exam: Bilateral: Clear to Auscultation Cardiovascular Cardiovascular Exam: Regular Rate, Normal Rhythm and Normal Heart Sounds; negative Systolic Murmur and Diastolic Murmur Abdominal Exam Abdominal Exam: Normal Inspection, Normal Bowel Sounds and Soft; negative Tenderness Extremities Extremities Exam: Tenderness (ABSCESS AND CELLULITIS RIGHT FOREARM) Back Back Exam: Normal Inspection Neurological Neurological Exam: Alert, Oriented X3 and CN II-XII Intact Psychiatric Psychiatric Exam: Normal Affect and Normal Mood Skin Skin Exam: Warm, Dry, Intact and Normal Color MDM Differential Diagnosis Differential Diagnosis: Other (ABSCESS AND CELLULITIS RIGHT FOREARM.) COURSE Treatment Treatment: SEE ORDERS. PATIENT SIGN OUT TO DR. KERN AT 10:10AM. Consultation Consultation Comments: SURGICAL CONSULT TO DR. ANDREWS. HE WILL COME TO ER TO SEE PATIENT. Education/Counseling Education/Counseling: Patient Educated On: Diagnosis ROR Labs Reviewed Result Diagrams: 08/18/19 05:10 08/18/19 05:10 Laboratory: 08/17/19 07:21 Blood Blood Culture - Preliminary 08/17/19 07:10 Blood Blood Culture - Preliminary 08/17/19 14:24 Arm - Right Gram Stain - Final 08/17/19 14:24 Arm - Right Wound Culture - Preliminary WBC 22.1 X10^3/uL (3.6-10.0) H 08/17/19 07:10 RBC 5.09 X10^6/uL (3.5-5.4) 08/17/19 07:10 Hgb 13.6 g/dL (12.0-16.0) 08/17/19 07:10 Hct 42.5 % (36.0-47.0) 08/17/19 07:10 MCV 83.5 fL (80.0-100.0) 08/17/19 07:10 MCH 26.7 pg (27.0-34.0) L 08/17/19 07:10 MCHC 32.0 g/dL (33.0-35.0) L 08/17/19 07:10 RDW 17.2 % (11.6-16.5) H 08/17/19 07:10 Plt Count 399 X10^3/uL (150.0-450.0) 08/17/19 07:10 Plt Count Comment Adequate (ADEQUATE) 08/17/19 07:10 MPV 7.4 fL (7.4-11.0) 08/17/19 07:10 Neut % (Auto) 85.1 % (42.0-75.0) H 08/17/19 07:10 Lymph % (Auto) 10.0 % (21.0-51.0) L 08/17/19 07:10 [place] % (Auto) 4.2 % (0.0-13.0) 08/17/19 07:10 Eos % (Auto) 0.2 % (0.9-2.9) L 08/17/19 07:10 Baso % (Auto) 0.5 % (0.2-1.0) 08/17/19 07:10 Neut # (Auto) 18.8 x10^3/uL (2.2-4.8) H 08/17/19 07:10 Lymph # (Auto) 2.2 X10^3/uL (1.3-2.9) 08/17/19 07:10 [place] # (Auto) 0.9 x10^3/uL (0.3-0.8) H 08/17/19 07:10 Eos # (Auto) 0.0 x10^3/uL (0.0-0.2) 08/17/19 07:10 Baso # (Auto) 0.1 X10^3/uL (0.0-0.1) 08/17/19 07:10 Absolute Nucleated RBC 0.0 /100WBC 08/17/19 07:10 Total Counted 100 08/17/19 07:10 Neutrophils % (Manual) 79 % (39-76) H 08/17/19 07:10 Band Neutrophils % 3 % (0-10) 08/17/19 07:10 Lymphocytes % (Manual) 14 % (13-43) 08/17/19 07:10 Monocytes % (Manual) 4 % (4-9) 08/17/19 07:10 Plt Morphology Comment Normal (NORMAL) 08/17/19 07:10 RBC Morphology Normal (NORMAL) 08/17/19 07:10 Sodium 130 mmol/L (136-145) L 08/17/19 07:10 Corrected Sodium TNP 08/17/19 07:10 Potassium 1.9 mmol/L (3.5-5.1) L* 08/17/19 07:10 Chloride 90 mmol/L (98-107) L 08/17/19 07:10 Carbon Dioxide 32.6 mmol/L (21-32) H 08/17/19 07:10 BUN 17 mg/dL (7-18) 08/17/19 07:10 Creatinine 0.90 mg/dL (0.55-1.02) 08/17/19 07:10 Est GFR (MDRD) Af Amer > 60 (>60) 08/17/19 07:10 Est GFR (MDRD) Non-Af > 60 (>60) 08/17/19 07:10 Glucose 90 mg/dL (65-99) 08/17/19 07:10 Lactic Acid 1.6 mmol/L (0.4-2.0) 08/17/19 07:10 Lactic Acid Cancelled 08/17/19 07:10 Calcium 8.8 mg/dL (8.5-10.1) 08/17/19 07:10 Corrected Calcium TNP 08/17/19 07:10 Magnesium 2.2 mg/dL (1.7-2.9) 08/17/19 07:10 Total Bilirubin 0.80 mg/dL (0.2-1.0) 08/17/19 07:10 AST 21 Units/L (15-37) 08/17/19 07:10 ALT 20 Units/L (12-78) 08/17/19 07:10 Alkaline Phosphatase 93 Units/L (46-116) 08/17/19 07:10 C-Reactive Protein 111.90 mg/L (0-3.0) H 08/17/19 07:10 Total Protein 8.7 g/dL (6.4-8.2) H 08/17/19 07:10 Albumin 3.4 g/dL (3.4-5.0) 08/17/19 07:10 Globulin 5.3 g/dL (2.5-4.5) H 08/17/19 07:10 Albumin/Globulin Ratio 0.6 Ratio (1.1-2.1) L 08/17/19 07:10 Tissue Pathology To follow 08/17/19 14:24 Opioid Opioid Risk Tool Age (Jose M box if 16-45): No History of Preadolescent Sexual Abuse: No Total: 0 Total Score Risk Category: Low Risk Copyright: Luc VARGAS predicting aberrant behaviors Diagnosis Discharge Problem: Cellulitis of right upper extremity, Abscess of forearm, right
[2019-08-17] MEDS ORDERED: CATAPRES TAB 0.2 MG PO ONE (07:16)
[2019-08-17] MEDS ORDERED: ZOFRAN INJ 4 MG VIAL IVP ONE (07:16)
[2019-08-17] MEDS ORDERED: TORADOL 30 MG VIAL IVP ONE (07:38)
[2019-08-17] MEDS ORDERED: TORADOL 30 MG VIAL ONE (07:47)
[2019-08-17 07:54] LABS: BASOPHILS # (AUTO) 0.1 X10^3/uL (0.0-0.1); BASOPHILS % (AUTO) 0.5 % (0.2-1.0); EOSINOPHILS % (AUTO) 0.2 % (0.9-2.9); HEMATOCRIT 42.5 % (36.0-47.0); HEMOGLOBIN 13.6 g/dL (12.0-16.0); LYMPHOCYTES # (AUTO) 2.2 X10^3/uL (1.3-2.9); MEAN CORPUSCULAR HEMOGLOBIN 26.7 pg (27.0-34.0); MEAN CORPUSCULAR VOLUME 83.5 fL (80.0-100.0); MEAN PLATELET VOLUME 7.4 fL (7.4-11.0); MONOCYTES # (AUTO) 0.9 x10^3/uL (0.3-0.8); MONOCYTES % (AUTO) 4.2 % (0.0-13.0); NEUTROPHILS # (AUTO) 18.8 x10^3/uL (2.2-4.8); NEUTROPHILS % (AUTO) 85.1 % (42.0-75.0); PLATELET COUNT 399 X10^3/uL (150.0-450.0); RED BLOOD COUNT 5.09 X10^6/uL (3.5-5.4); RED CELL DISTRIBUTION WIDTH 17.2 % (11.6-16.5); WHITE BLOOD COUNT 22.1 X10^3/uL (3.6-10.0)
[2019-08-17 07:56] LABS: BLOOD UREA NITROGEN 17 mg/dL (7-18); CALCIUM 8.8 mg/dL (8.5-10.1); CARBON DIOXIDE 32.6 mmol/L (21-32); CHLORIDE 90 mmol/L (98-107); SODIUM 130 mmol/L (136-145); eGFR NON BLACK RACES > 60 (>60)
[2019-08-17 08:01] LABS: ALANINE AMINOTRANSFERASE 20 Units/L (12-78); ALBUMIN 3.4 g/dL (3.4-5.0); ALKALINE PHOSPHATASE 93 Units/L (46-116); ASPARTATE AMINO TRANSFERASE 21 Units/L (15-37); TOTAL PROTEIN 8.7 g/dL (6.4-8.2)
[2019-08-17 08:04] LABS: LACTIC ACID 1.6 mmol/L (0.4-2.0)
[2019-08-17 08:22] LABS: BAND NEUTROPHILS % 3 % (0-10); PLATELET MORPHOLOGY COMMENT NORMAL (NORMAL)
[2019-08-17] MEDS ORDERED: KLOR-CON PO ONE (08:38)
[2019-08-17] MEDS ORDERED: KLOR-CON ONE (08:40)
[2019-08-17] MEDS: NS + KCL 20 MEQ/L 1,000 ML IV SCH ×2 (08:51→20:36)
[2019-08-17] MEDS ORDERED: VANCOMYCIN IV *PREMIX 1 G/200 ML BAG 1 G/200 ML PIGGYBACK IV ONE (10:25)
[2019-08-17] MEDS ORDERED: VANCOMYCIN HCL ONE (10:44)
[2019-08-17] MEDS ORDERED: NS 250 ML IV 250 ML IV ONE (10:44)
[2019-08-17] MEDS ORDERED: NS 100 ML IV 100 ML IV ONE (11:01)
[2019-08-17] MEDS ORDERED: MORPHINE SULFATE INJ 4 MG ONE (11:01)
--- NOTE | 2019-08-17 13:09 | DR.EXTPAIN ---
HPI Time seen Time Seen by Provider: 08/17/19 07:09 PCP Primary Care Physician: becca Complaint/Symptoms Chief Complaint:: pt has had a cyst on her aright arm for over a month and has a appointment to see dr lucia tomorrow but she stated the pain is to bad. COVID-19 Coronavirus risk:travel/contact w/high risk person: No Has patient experienced Coronavirus symptoms: No Source History Provided: Patient Mode of arrival Mode of Arrival: Ambulatory Timing Onset of Chief Complaint: 07/15/19 PMH PMH Past Medical History: Yes Past Medical History: Anxiety and Arthritis Past Surgical History: Yes Surgical History: Hysterectomy Family History History of Family Medical Conditions: Yes Family Medical History: Cancer Social History Does patient currently use any type of tobacco product: Yes Have you used tobacco products in the last 12 months: Yes Type of Tobacco Use: Cigarettes How many years tobacco product used: 40 Does any household member use tobacco: Yes Alcohol Use: None Do you use any recreational Drugs:: No Lives With: Family Lives Where: Home Travel Risk Coronavirus risk:travel/contact w/high risk person: No Has patient experienced Coronavirus symptoms: No Infectious screening In the last 2 months have you had wt loss of >10#?: NO Have you had fever, night sweats or hemotysis?: No Have you traveled outside the country in the last 6 months?: No Isolation: Standard PE Vital Signs Vitals: Temperature 98.7 F Pulse Rate [Left Brachial] 81 Pulse Rate 97 Respiratory Rate 16 Blood Pressure [Left Arm] 109/79 Blood Pressure 88/54 O2 Sat by Pulse Oximetry 98 COURSE Treatment Treatment: Dr. Miranda (surgeon) evaluated the patient and will take her to OR for I&D. Patient with critical Hypokalemia, with large area cellulitis associated with abscesses requiring IV antibiotics. Hospitalization within the last 2 months, empirical Vanc started. Spoke with Dr. Oliveros who accepted the patient for further medical management. ROR Labs Reviewed Laboratory Results Reviewed?: Yes Result Diagrams: 08/17/19 07:10 08/17/19 07:10 Laboratory: 08/17/19 14:24 Arm - Right Gram Stain - Final WBC 22.1 X10^3/uL (3.6-10.0) H 08/17/19 07:10 RBC 5.09 X10^6/uL (3.5-5.4) 08/17/19 07:10 Hgb 13.6 g/dL (12.0-16.0) 08/17/19 07:10 Hct 42.5 % (36.0-47.0) 08/17/19 07:10 MCV 83.5 fL (80.0-100.0) 08/17/19 07:10 MCH 26.7 pg (27.0-34.0) L 08/17/19 07:10 MCHC 32.0 g/dL (33.0-35.0) L 08/17/19 07:10 RDW 17.2 % (11.6-16.5) H 08/17/19 07:10 Plt Count 399 X10^3/uL (150.0-450.0) 08/17/19 07:10 Plt Count Comment Adequate (ADEQUATE) 08/17/19 07:10 MPV 7.4 fL (7.4-11.0) 08/17/19 07:10 Neut % (Auto) 85.1 % (42.0-75.0) H 08/17/19 07:10 Lymph % (Auto) 10.0 % (21.0-51.0) L 08/17/19 07:10 [place] % (Auto) 4.2 % (0.0-13.0) 08/17/19 07:10 Eos % (Auto) 0.2 % (0.9-2.9) L 08/17/19 07:10 Baso % (Auto) 0.5 % (0.2-1.0) 08/17/19 07:10 Neut # (Auto) 18.8 x10^3/uL (2.2-4.8) H 08/17/19 07:10 Lymph # (Auto) 2.2 X10^3/uL (1.3-2.9) 08/17/19 07:10 [place] # (Auto) 0.9 x10^3/uL (0.3-0.8) H 08/17/19 07:10 Eos # (Auto) 0.0 x10^3/uL (0.0-0.2) 08/17/19 07:10 Baso # (Auto) 0.1 X10^3/uL (0.0-0.1) 08/17/19 07:10 Absolute Nucleated RBC 0.0 /100WBC 08/17/19 07:10 Total Counted 100 08/17/19 07:10 Neutrophils % (Manual) 79 % (39-76) H 08/17/19 07:10 Band Neutrophils % 3 % (0-10) 08/17/19 07:10 Lymphocytes % (Manual) 14 % (13-43) 08/17/19 07:10 Monocytes % (Manual) 4 % (4-9) 08/17/19 07:10 Plt Morphology Comment Normal (NORMAL) 08/17/19 07:10 RBC Morphology Normal (NORMAL) 08/17/19 07:10 Sodium 130 mmol/L (136-145) L 08/17/19 07:10 Corrected Sodium TNP 08/17/19 07:10 Potassium 1.9 mmol/L (3.5-5.1) L* 08/17/19 07:10 Chloride 90 mmol/L (98-107) L 08/17/19 07:10 Carbon Dioxide 32.6 mmol/L (21-32) H 08/17/19 07:10 BUN 17 mg/dL (7-18) 08/17/19 07:10 Creatinine 0.90 mg/dL (0.55-1.02) 08/17/19 07:10 Est GFR (MDRD) Af Amer > 60 (>60) 08/17/19 07:10 Est GFR (MDRD) Non-Af > 60 (>60) 08/17/19 07:10 Glucose 90 mg/dL (65-99) 08/17/19 07:10 Lactic Acid 1.6 mmol/L (0.4-2.0) 08/17/19 07:10 Lactic Acid Cancelled 08/17/19 07:10 Calcium 8.8 mg/dL (8.5-10.1) 08/17/19 07:10 Corrected Calcium TNP 08/17/19 07:10 Magnesium 2.2 mg/dL (1.7-2.9) 08/17/19 07:10 Total Bilirubin 0.80 mg/dL (0.2-1.0) 08/17/19 07:10 AST 21 Units/L (15-37) 08/17/19 07:10 ALT 20 Units/L (12-78) 08/17/19 07:10 Alkaline Phosphatase 93 Units/L (46-116) 08/17/19 07:10 C-Reactive Protein 111.90 mg/L (0-3.0) H 08/17/19 07:10 Total Protein 8.7 g/dL (6.4-8.2) H 08/17/19 07:10 Albumin 3.4 g/dL (3.4-5.0) 08/17/19 07:10 Globulin 5.3 g/dL (2.5-4.5) H 08/17/19 07:10 Albumin/Globulin Ratio 0.6 Ratio (1.1-2.1) L 08/17/19 07:10 Opioid Opioid Risk Tool Age (Jose M box if 16-45): No History of Preadolescent Sexual Abuse: No Total: 0 Total Score Risk Category: Low Risk Copyright: Luc VARGAS predicting aberrant behaviors Diagnosis Discharge Problem: Cellulitis of right upper extremity
[2019-08-17] MEDS ORDERED: ZOSYN VIAL 3.375 GRAMS IV ONE (14:06)
[2019-08-17] MEDS ORDERED: NS 100 ML IV + SPIKE MINIBAG* 100 ML IV ONE (14:06)
[2019-08-17] MEDS ORDERED: POLYMYXIN B SULFATE IR ONE (14:08)
[2019-08-17] MEDS ORDERED: NS 500 ML IV 500 ML IV ONE (14:08)
[2019-08-17] MEDS ORDERED: XYLOCAINE 1 % (PLAIN) IJ ONE (14:08)
[2019-08-17] MEDS ORDERED: PERCOCET TAB 5/325 MG PO PRN (14:50)
[2019-08-17] MEDS ORDERED: DIPRIVAN VIAL ONE (14:53)
[2019-08-17] MEDS ORDERED: XYLOCAINE 2 % (PLAIN) ONE (14:53)
[2019-08-17] MEDS ORDERED: VERSED ONE (14:53)
[2019-08-17] MEDS ORDERED: PHARMACY CONSULT - VANCOMYCIN XX SCH (15:37)
[2019-08-17] MEDS: VANCOMYCIN IV *PREMIX 1 G/200 ML BAG 1 G/200 ML PIGGYBACK IV SCH ×2 (16:06→20:37)
[2019-08-17 18:20] LABS: BILIRUBIN,URINE NEGATIVE (NEGATIVE); BLOOD/HEMOGLOBIN,URINE NEGATIVE (NEGATIVE); GLUCOSE, URINE NEGATIVE (NEGATIVE); KETONES,URINE NEGATIVE (NEGATIVE); LEUKOCYTE ESTERASE ,URINE NEGATIVE (NEGATIVE); NITRITES,URINE NEGATIVE (NEGATIVE); PROTEIN,URINE 2+ (NEGATIVE); UROBILINOGEN,URINE NORMAL (NORMAL)
[2019-08-17 18:31] LABS: APPEARANCE,URINE CLEAR (CLEAR); BACTERIA,URINE NEGATIVE /HPF (NEGATIVE); COLOR,URINE YELLOW (YELLOW); RBC,URINE 0-2 /HPF (0-3); SQUAMOUS EPITHELIAL CELL,UR FEW /HPF (NEGATIVE)
[2019-08-18] MEDS: NS + KCL 20 MEQ/L 1,000 ML IV SCH (03:09)
[2019-08-18 06:04] LABS: BASOPHILS # (AUTO) 0.1 X10^3/uL (0.0-0.1); BASOPHILS % (AUTO) 0.8 % (0.2-1.0); EOSINOPHILS # (AUTO) 0.1 x10^3/uL (0.0-0.2); EOSINOPHILS % (AUTO) 0.5 % (0.9-2.9); HEMATOCRIT 36.6 % (36.0-47.0); HEMOGLOBIN 11.7 g/dL (12.0-16.0); LYMPHOCYTES # (AUTO) 2.4 X10^3/uL (1.3-2.9); LYMPHOCYTES % (AUTO) 15.2 % (21.0-51.0); MEAN CORPUSCULAR HEMOGLOBIN 26.5 pg (27.0-34.0); MEAN CORPUSCULAR HGB CONC 31.9 g/dL (33.0-35.0); MEAN CORPUSCULAR VOLUME 83.1 fL (80.0-100.0); MONOCYTES # (AUTO) 0.7 x10^3/uL (0.3-0.8); MONOCYTES % (AUTO) 4.4 % (0.0-13.0); NEUTROPHILS # (AUTO) 12.3 x10^3/uL (2.2-4.8); NEUTROPHILS % (AUTO) 79.1 % (42.0-75.0); PLATELET COUNT 355 X10^3/uL (150.0-450.0); RED BLOOD COUNT 4.41 X10^6/uL (3.5-5.4); RED CELL DISTRIBUTION WIDTH 16.9 % (11.6-16.5); WHITE BLOOD COUNT 15.6 X10^3/uL (3.6-10.0)
[2019-08-18 06:16] LABS: ALANINE AMINOTRANSFERASE 16 Units/L (12-78); ALBUMIN 2.6 g/dL (3.4-5.0); ALKALINE PHOSPHATASE 70 Units/L (46-116); ASPARTATE AMINO TRANSFERASE 16 Units/L (15-37); BLOOD UREA NITROGEN 9 mg/dL (7-18); CALCIUM 7.9 mg/dL (8.5-10.1); CARBON DIOXIDE 24.2 mmol/L (21-32); CHLORIDE 99 mmol/L (98-107); SODIUM 135 mmol/L (136-145); TOTAL PROTEIN 6.8 g/dL (6.4-8.2); eGFR NON BLACK RACES > 60 (>60)
[2019-08-18 08:15] VITALS: BP 143/77
[2019-08-18] MEDS ORDERED: VANCOMYCIN 1 GRAM PREMIX (ADDVANTAGE) 250 ML IV ONE (08:21)
[2019-08-18] MEDS: VANCOMYCIN IV *PREMIX 1 G/200 ML BAG 1 G/200 ML PIGGYBACK IV SCH (08:33)
--- NOTE | 2019-08-18 09:24 | DR.PROGNOT ---
Hospital Progress Notes - Progress Note for Day of: Progress Note Date: 08/18/19 - Chief Complaint Chief Complaint: feeling better and wants to go home . moderate drainage on the dressing which was changed . erythema and swelling is less . normal ROM Rt hand and wrist . packing in place . - Past Medical Family Social History Past Med/Fam/Surg Hx: No changes since H&P Allergies: Allergies No Known Drug Allergies Allergy (Verified 08/17/19 06:30) - Review Of Systems ROS: No change since H&P - Vital Signs Vital Signs: Temperature 98.1 F Pulse Rate [Left Brachial] 98 Pulse Rate 97 Respiratory Rate 20 Blood Pressure [Left Arm] 143/77 Blood Pressure 88/54 O2 Sat by Pulse Oximetry 99 - Physical Exam Oriented: Normal Eyes: Normal Ear: Normal Nose: Normal Throat: Normal Respiratory: Normal Cardiovascular: Normal : Normal GI:Auscultation: Normal GI:Palpation: Normal GI: Tenderness: Normal Skin: Other (moderate erythema around the Rt forearm abscess .less edema ) Speech Pattern: Clear, Appropriate - Laboratory and Diagnostics Result Diagrams: 08/18/19 05:10 08/18/19 05:10 Labs: 08/17/19 14:24 Arm - Right Gram Stain - Final Laboratory WBC 15.6 X10^3/uL (3.6-10.0) H 08/18/19 05:10 RBC 4.41 X10^6/uL (3.5-5.4) 08/18/19 05:10 Hgb 11.7 g/dL (12.0-16.0) L 08/18/19 05:10 Hct 36.6 % (36.0-47.0) 08/18/19 05:10 MCV 83.1 fL (80.0-100.0) 08/18/19 05:10 MCH 26.5 pg (27.0-34.0) L 08/18/19 05:10 MCHC 31.9 g/dL (33.0-35.0) L 08/18/19 05:10 RDW 16.9 % (11.6-16.5) H 08/18/19 05:10 Plt Count 355 X10^3/uL (150.0-450.0) 08/18/19 05:10 Plt Count Comment Adequate (ADEQUATE) 08/17/19 07:10 MPV 7.0 fL (7.4-11.0) L 08/18/19 05:10 Neut % (Auto) 79.1 % (42.0-75.0) H 08/18/19 05:10 Lymph % (Auto) 15.2 % (21.0-51.0) L 08/18/19 05:10 [place] % (Auto) 4.4 % (0.0-13.0) 08/18/19 05:10 Eos % (Auto) 0.5 % (0.9-2.9) L 08/18/19 05:10 Baso % (Auto) 0.8 % (0.2-1.0) 08/18/19 05:10 Neut # (Auto) 12.3 x10^3/uL (2.2-4.8) H 08/18/19 05:10 Lymph # (Auto) 2.4 X10^3/uL (1.3-2.9) 08/18/19 05:10 [place] # (Auto) 0.7 x10^3/uL (0.3-0.8) 08/18/19 05:10 Eos # (Auto) 0.1 x10^3/uL (0.0-0.2) 08/18/19 05:10 Baso # (Auto) 0.1 X10^3/uL (0.0-0.1) 08/18/19 05:10 Absolute Nucleated RBC 0.0 /100WBC 08/18/19 05:10 Total Counted 100 08/17/19 07:10 Neutrophils % (Manual) 79 % (39-76) H 08/17/19 07:10 Band Neutrophils % 3 % (0-10) 08/17/19 07:10 Lymphocytes % (Manual) 14 % (13-43) 08/17/19 07:10 Monocytes % (Manual) 4 % (4-9) 08/17/19 07:10 Plt Morphology Comment Normal (NORMAL) 08/17/19 07:10 RBC Morphology Normal (NORMAL) 08/17/19 07:10 Sodium 135 mmol/L (136-145) L 08/18/19 05:10 Corrected Sodium TNP 08/18/19 05:10 Potassium 2.4 mmol/L (3.5-5.1) L* 08/18/19 05:10 Chloride 99 mmol/L (98-107) 08/18/19 05:10 Carbon Dioxide 24.2 mmol/L (21-32) 08/18/19 05:10 BUN 9 mg/dL (7-18) 08/18/19 05:10 Creatinine 0.70 mg/dL (0.55-1.02) 08/18/19 05:10 Est GFR (MDRD) Af Amer > 60 (>60) 08/18/19 05:10 Est GFR (MDRD) Non-Af > 60 (>60) 08/18/19 05:10 Glucose 96 mg/dL (65-99) 08/18/19 05:10 Lactic Acid 1.6 mmol/L (0.4-2.0) 08/17/19 07:10 Lactic Acid Cancelled 08/17/19 07:10 Calcium 7.9 mg/dL (8.5-10.1) L 08/18/19 05:10 Corrected Calcium 9.0 mg/dL (8.5-10.1) 08/18/19 05:10 Magnesium 2.0 mg/dL (1.7-2.9) 08/18/19 05:10 Total Bilirubin 0.60 mg/dL (0.2-1.0) 08/18/19 05:10 AST 16 Units/L (15-37) 08/18/19 05:10 ALT 16 Units/L (12-78) 08/18/19 05:10 Alkaline Phosphatase 70 Units/L (46-116) 08/18/19 05:10 C-Reactive Protein 111.90 mg/L (0-3.0) H 08/17/19 07:10 Total Protein 6.8 g/dL (6.4-8.2) 08/18/19 05:10 Albumin 2.6 g/dL (3.4-5.0) L 08/18/19 05:10 Globulin 4.2 g/dL (2.5-4.5) 08/18/19 05:10 Albumin/Globulin Ratio 0.6 Ratio (1.1-2.1) L 08/18/19 05:10 Specimen Type Clean catch urine 08/17/19 18:10 Urine Color Yellow (YELLOW) 08/17/19 18:10 Urine Appearance Clear (CLEAR) 08/17/19 18:10 Urine pH 7.0 (5.0 - 8.0) 08/17/19 18:10 Ur Specific [place] 1.010 (1.000-1.030) 08/17/19 18:10 Urine Protein 2+ (NEGATIVE) 08/17/19 18:10 Urine Glucose (UA) Negative (NEGATIVE) 08/17/19 18:10 Urine Ketones Negative (NEGATIVE) 08/17/19 18:10 Urine Occult Blood Negative (NEGATIVE) 08/17/19 18:10 Urine Nitrite Negative (NEGATIVE) 08/17/19 18:10 Urine Bilirubin Negative (NEGATIVE) 08/17/19 18:10 Urine Urobilinogen Normal (NORMAL) 08/17/19 18:10 Ur Leukocyte Esterase Negative (NEGATIVE) 08/17/19 18:10 Urine RBC 0-2 /HPF (0-3) 08/17/19 18:10 Urine WBC 0-2 /HPF (0-5) 08/17/19 18:10 Ur Squamous Epith Cells Few /HPF (NEGATIVE) 08/17/19 18:10 Urine Bacteria Negative /HPF (NEGATIVE) 08/17/19 18:10 Ur Culture Indicated? No/not indicated 08/17/19 18:10 Tissue Pathology To follow 08/17/19 14:24 - Assessment and Plan 1: large Rt forearm abscess , s/p drainage and debridement. awaiting C&S . on IV vancomycin . to have VNA , change dressing daily .KEELY and Celena ,. oral ATB pending culture . f/u in 2 days - Problem Patient Problems: Patient Problems Cellulitis of right upper extremity (Acute) L03.113 Hypokalemia (Acute) E87.6
[2019-08-18] MEDS ORDERED: PHARMACY COMMENT IV NR (20:30)
== END 2019-08-18 10:35 | disposition left against medical advice (07) | DRG 572 ==
LOC: ER 06:40 → MED/SURG 14:00
PROVIDERS: ADMIT Obstetrics & Gynecology Obstetrics; ATTEND Obstetrics & Gynecology Obstetrics
DX: F41.8 Other specified anxiety disorders; L02.413 Cutaneous abscess of right upper limb; Z53.29 Procedure and treatment not carried out because of patient's decision for other reasons; E87.6 Hypokalemia; L03.113 Cellulitis of right upper limb
CPT/HCPCS: 36415; 80053; 81001; 83605; 83735; 85025; 86140; 87040; 87070; 87075; 87205; 96365; 96374; 96375; 99284; A4222; J1885; J2250; J2270; J2543; J2704; J3370; J7040; J7050

== ENCOUNTER 2020-09-15 17:05 | Inpatient (IN) ==
[2020-09-15 18:02] VITALS: BMI 15.5
[2020-09-15] MEDS ORDERED: NS 1000 ML 1,000 ML IV ONE ×2 (18:05→19:59)
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
[2020-09-15] MEDS ORDERED: NS 1000 ML 1,000 ML ONE ×3 (18:33→21:00)
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
[2020-09-15 19:23] LABS: BASOPHILS # (AUTO) 0.1 X10^3/uL (0.0-0.1); BASOPHILS % (AUTO) 0.8 % (0.2-1.0); EOSINOPHILS # (AUTO) 0.2 x10^3/uL (0.0-0.2); EOSINOPHILS % (AUTO) 1.1 % (0.9-2.9); HEMATOCRIT 29.8 % (36.0-47.0); HEMOGLOBIN 9.9 g/dL (12.0-16.0); LYMPHOCYTES # (AUTO) 1.7 X10^3/uL (1.3-2.9); LYMPHOCYTES % (AUTO) 9.8 % (21.0-51.0); MEAN CORPUSCULAR HEMOGLOBIN 29.5 pg (27.0-34.0); MEAN CORPUSCULAR HGB CONC 33.2 g/dL (33.0-35.0); MEAN CORPUSCULAR VOLUME 88.8 fL (80.0-100.0); MEAN PLATELET VOLUME 7.1 fL (7.4-11.0); MONOCYTES # (AUTO) 1.1 x10^3/uL (0.3-0.8); MONOCYTES % (AUTO) 6.5 % (0.0-13.0); NEUTROPHILS # (AUTO) 14.1 x10^3/uL (2.2-4.8); NEUTROPHILS % (AUTO) 81.8 % (42.0-75.0); PLATELET COUNT 213 X10^3/uL (150.0-450.0); RED BLOOD COUNT 3.36 X10^6/uL (3.5-5.4); RED CELL DISTRIBUTION WIDTH 14.3 % (11.6-16.5); WHITE BLOOD COUNT 17.2 X10^3/uL (3.6-10.0)
[2020-09-15 19:40] LABS: ALANINE AMINOTRANSFERASE 16 Units/L (12-78); ALKALINE PHOSPHATASE 73 Units/L (46-116); ASPARTATE AMINO TRANSFERASE 25 Units/L (15-37); CARBON DIOXIDE 23.9 mmol/L (21-32); CHLORIDE 100 mmol/L (98-107); CREATINE KINASE 100 Units/L (26-192); SODIUM 134 mmol/L (136-145); TOTAL PROTEIN 6.9 g/dL (6.4-8.2); TROPONIN I < 0.02 ng/mL (0-1.5)
[2020-09-15 19:47] LABS: ALBUMIN 3.4 g/dL (3.4-5.0); BLOOD UREA NITROGEN 52 mg/dL (7-18); CALCIUM 7.9 mg/dL (8.5-10.1); CREATININE 4.83 mg/dL (0.55-1.02); eGFR NON BLACK RACES 10 (>60)
[2020-09-15 20:01] LABS: LACTIC ACID 0.9 mmol/L (0.4-2.0)
[2020-09-15] MEDS: NS 1000 ML 1,000 ML IV SCH (21:04)
[2020-09-15 21:49] LABS: BILIRUBIN,URINE NEGATIVE (NEGATIVE); BLOOD/HEMOGLOBIN,URINE 2+ (NEGATIVE); GLUCOSE, URINE NEGATIVE (NEGATIVE); KETONES,URINE NEGATIVE (NEGATIVE); LEUKOCYTE ESTERASE ,URINE NEGATIVE (NEGATIVE); NITRITES,URINE NEGATIVE (NEGATIVE); PROTEIN,URINE 1+ (NEGATIVE); UROBILINOGEN,URINE NORMAL (NORMAL)
[2020-09-15 22:04] LABS: APPEARANCE,URINE CLEAR (CLEAR); COLOR,URINE STRAW (YELLOW)
[2020-09-15 22:05] LABS: BACTERIA,URINE 2+ /HPF (NEGATIVE); RBC,URINE 0-2 /HPF (0-3); SQUAMOUS EPITHELIAL CELL,UR MANY /HPF (NEGATIVE)
[2020-09-16] MEDS ORDERED: NS 1000 ML 1,000 ML IV SCH (02:00)
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
[2020-09-16 06:54] LABS: BASOPHILS # (AUTO) 0.1 X10^3/uL (0.0-0.1); BASOPHILS % (AUTO) 0.9 % (0.2-1.0); EOSINOPHILS # (AUTO) 0.1 x10^3/uL (0.0-0.2); EOSINOPHILS % (AUTO) 1.1 % (0.9-2.9); HEMOGLOBIN 9.4 g/dL (12.0-16.0); LYMPHOCYTES # (AUTO) 2.7 X10^3/uL (1.3-2.9); LYMPHOCYTES % (AUTO) 23.1 % (21.0-51.0); MEAN CORPUSCULAR HEMOGLOBIN 29.5 pg (27.0-34.0); MEAN CORPUSCULAR HGB CONC 33.5 g/dL (33.0-35.0); MEAN CORPUSCULAR VOLUME 88.1 fL (80.0-100.0); MEAN PLATELET VOLUME 7.2 fL (7.4-11.0); MONOCYTES # (AUTO) 1.1 x10^3/uL (0.3-0.8); MONOCYTES % (AUTO) 9.5 % (0.0-13.0); NEUTROPHILS # (AUTO) 7.7 x10^3/uL (2.2-4.8); NEUTROPHILS % (AUTO) 65.4 % (42.0-75.0); PLATELET COUNT 196 X10^3/uL (150.0-450.0); RED BLOOD COUNT 3.17 X10^6/uL (3.5-5.4); RED CELL DISTRIBUTION WIDTH 14.3 % (11.6-16.5); WHITE BLOOD COUNT 11.8 X10^3/uL (3.6-10.0)
[2020-09-16 07:27] LABS: ALANINE AMINOTRANSFERASE 12 Units/L (12-78); ALBUMIN 2.4 g/dL (3.4-5.0); ALKALINE PHOSPHATASE 60 Units/L (46-116); ASPARTATE AMINO TRANSFERASE 20 Units/L (15-37); BLOOD UREA NITROGEN 41 mg/dL (7-18); CALCIUM 6.7 mg/dL (8.5-10.1); CARBON DIOXIDE 20.4 mmol/L (21-32); CHLORIDE 109 mmol/L (98-107); CREATININE 2.79 mg/dL (0.55-1.02); SODIUM 140 mmol/L (136-145); TOTAL PROTEIN 5.9 g/dL (6.4-8.2); eGFR NON BLACK RACES 18 (>60)
[2020-09-16] MEDS: NS 1000 ML 1,000 ML IV SCH ×2 (08:12→16:01)
[2020-09-16] MEDS ORDERED: PROTONIX INJ 40 MG VIAL IVP SCH (09:00)
[2020-09-16] MEDS: ZOCOR TAB 40 MG PO SCH ×2 (09:38→21:20)
[2020-09-16] MEDS ORDERED: BENADRYL INJ 50 MG VIAL IV ONE (10:55)
[2020-09-16] MEDS ORDERED: NICOTINE PATCH TD SCH (12:00)
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
[2020-09-17] MEDS: NS 1000 ML 1,000 ML IV SCH ×2 (00:12→05:48)
[2020-09-17 08:23] VITALS: BP 120/70
[2020-09-17 08:59] LABS: BASOPHILS # (AUTO) 0.1 X10^3/uL (0.0-0.1); BASOPHILS % (AUTO) 1.1 % (0.2-1.0); EOSINOPHILS # (AUTO) 0.2 x10^3/uL (0.0-0.2); EOSINOPHILS % (AUTO) 1.6 % (0.9-2.9); HEMOGLOBIN 10.7 g/dL (12.0-16.0); LYMPHOCYTES # (AUTO) 1.7 X10^3/uL (1.3-2.9); LYMPHOCYTES % (AUTO) 16.6 % (21.0-51.0); MEAN CORPUSCULAR HEMOGLOBIN 29.9 pg (27.0-34.0); MEAN CORPUSCULAR HGB CONC 33.4 g/dL (33.0-35.0); MEAN CORPUSCULAR VOLUME 89.4 fL (80.0-100.0); MEAN PLATELET VOLUME 7.3 fL (7.4-11.0); MONOCYTES # (AUTO) 0.6 x10^3/uL (0.3-0.8); MONOCYTES % (AUTO) 5.9 % (0.0-13.0); NEUTROPHILS # (AUTO) 7.8 x10^3/uL (2.2-4.8); NEUTROPHILS % (AUTO) 74.8 % (42.0-75.0); PLATELET COUNT 231 X10^3/uL (150.0-450.0); RED BLOOD COUNT 3.58 X10^6/uL (3.5-5.4); RED CELL DISTRIBUTION WIDTH 14.5 % (11.6-16.5); WHITE BLOOD COUNT 10.4 X10^3/uL (3.6-10.0)
[2020-09-17 09:12] LABS: ALANINE AMINOTRANSFERASE 10 Units/L (12-78); ALBUMIN 2.5 g/dL (3.4-5.0); ALKALINE PHOSPHATASE 65 Units/L (46-116); ASPARTATE AMINO TRANSFERASE 15 Units/L (15-37); BLOOD UREA NITROGEN 19 mg/dL (7-18); CALCIUM 7.4 mg/dL (8.5-10.1); CARBON DIOXIDE 22.3 mmol/L (21-32); CHLORIDE 114 mmol/L (98-107); COR CA(FOR HYPOALB) 8.6 mg/dL (8.5-10.1); CREATININE 1.35 mg/dL (0.55-1.02); SODIUM 145 mmol/L (136-145); TOTAL PROTEIN 6.6 g/dL (6.4-8.2); eGFR NON BLACK RACES 43 (>60)
[2020-09-17] MEDS ORDERED: PROTONIX TAB 40 MG PO SCH (11:00)
== END 2020-09-17 11:15 | disposition home or self-care (01) | DRG 684 ==
LOC: ER 17:15 → MED/SURG 09-16 02:20
PROVIDERS: ADMIT Internal Medicine; ATTEND Internal Medicine
DX: E86.0 Dehydration; J44.9 Chronic obstructive pulmonary disease, unspecified; I50.9 Heart failure, unspecified; F19.90 Other psychoactive substance use, unspecified, uncomplicated; R25.1 Tremor, unspecified; Z91.81 History of falling; R41.82 Altered mental status, unspecified; I95.9 Hypotension, unspecified; Z20.822 Contact with and (suspected) exposure to COVID-19; N17.9 Acute kidney failure, unspecified

== ENCOUNTER 2024-02-16 10:23 | Inpatient (IN) ==
[2024-02-16 10:41] LABS: ABG BASE EXCESS -2.2 mmol/L (-2.0-2.0); ABG HCO3 22.4 mmol/L (22-26)
[2024-02-16] MEDS: SOLU-Medrol 125 MG VIAL IM ONE (10:47)
[2024-02-16] MEDS: SOLU-Medrol 125 MG VIAL IVP ONE (10:50)
[2024-02-16 11:03] LABS: BASOPHILS % (AUTO) 0.3 % (0.2-1.0); HEMATOCRIT 34.1 % (36.0-47.0); HEMOGLOBIN 11.3 g/dL (12.0-16.0); LYMPHOCYTES # (AUTO) 0.5 X10^3/uL (1.3-2.9); LYMPHOCYTES % (AUTO) 3.1 % (21.0-51.0); MEAN CORPUSCULAR HEMOGLOBIN 30.1 pg (27.0-34.0); MEAN CORPUSCULAR HGB CONC 33.2 g/dL (33.0-35.0); MEAN CORPUSCULAR VOLUME 90.8 fL (80.0-100.0); MONOCYTES # (AUTO) 0.4 x10^3/uL (0.3-0.8); MONOCYTES % (AUTO) 2.9 % (0.0-13.0); NEUTROPHILS # (AUTO) 14.2 x10^3/uL (2.2-4.8); NEUTROPHILS % (AUTO) 93.7 % (42.0-75.0); PLATELET COUNT 163 X10^3/uL (150.0-450.0); RED BLOOD COUNT 3.75 X10^6/uL (3.5-5.4); RED CELL DISTRIBUTION WIDTH 15.8 % (11.6-16.5); WHITE BLOOD COUNT 15.2 X10^3/uL (3.6-10.0)
[2024-02-16 11:17] LABS: ALANINE AMINOTRANSFERASE 24 Units/L (12-78); ALBUMIN 3.5 g/dL (3.4-5.0); ALKALINE PHOSPHATASE 72 Units/L (46-116); ASPARTATE AMINO TRANSFERASE 45 Units/L (15-37); BLOOD UREA NITROGEN 35 mg/dL (7-18); CARBON DIOXIDE 23.8 mmol/L (21-32); CHLORIDE 102 mmol/L (98-107); COR NA(FOR HYPERGLY) 140 mmol/L (136-145); CREATININE 2.15 mg/dL (0.55-1.02); GLUCOSE 152 mg/dL (65-99); POTASSIUM 3.9 mmol/L (3.5-5.1); SODIUM 139 mmol/L (136-145); TOTAL PROTEIN 7.6 g/dL (6.4-8.2); eGFR NON BLACK RACES 25 (>60)
[2024-02-16] MEDS: NS 1,000 ML IV 1,000 ML IV ONE (11:26)
--- NOTE | 2024-02-16 11:30 | DR.SOBA ---
HPI Time Seen Time Seen by Provider: 02/16/24 10:29 Primary Care Physician Primary Care Physician: Pt is unsure HPI Comment HPI Comment: Patient has been complaining of cough for a week. She is a smoker. She does have a history of drug use as well but denies anything inhaled on the pills. She does have a history of CHF as well. Her shortness of breath has worsened through the night. EMS did find her to be hypoxic but not obtunded. She improved on O2. Her blood pressure has been running low as well. Patient states last. She did was a Vicodin from the street that she took yesterday. Unsure what dose Complaints Chief Complaint:: Pt c/o nonproductive cough x 1 week. Pt denies fever or chi lls. Pt states that last night she became very short of breath and this has progressively worsened through the night into this morning. Pt denies any acute pain but c/o chronic lower back pain. Self Treatment fo Chief Complaint: Per EMS initial sat on room air was 95. Pt was given duoneb and afterwards O2 sat was reported to be 98% on room air. EMS reports BP 112/67. COVID-19 Coronavirus risk:travel/contact w/high risk person: No Has patient experienced Coronavirus symptoms: Yes Coronavirus symptoms experienced: Shortness of Breath Source History Provided: Patient Mode of Arrival Mode of Arrival: EMS Timing Onset of Chief Complaint: 02/10/24 PMH PMH Past Medical History: Yes Past Medical History: Alzheimers, Anxiety, CHF, Coronary Artery Disease, Dementia, Dyslipidemia and Hypertension Past Medical History Comment: cerebral aneurysm x 2 Past Surgical History: Yes Surgical History: Hysterectomy and Ortho Surgery Family History History of Family Medical Conditions: Yes Family Medical History: Cancer and Coronary Artery Disease Social History Does patient currently use any type of tobacco product: Yes Have you used tobacco products in the last 12 months: Yes Type of Tobacco Use: Cigarettes Does any household member use tobacco: No Alcohol Use: None Do you use any recreational Drugs:: Yes (Lorcet/Vicodin) Lives With: Family Lives Where: Home Travel Risk Coronavirus risk:travel/contact w/high risk person: No Has patient experienced Coronavirus symptoms: Yes Coronavirus symptoms experienced: Shortness of Breath Infectious screening In the last 2 months have you had wt loss of >10#?: NO Have you had fever, night sweats or hemotysis?: No Have you traveled outside the country in the last 6 months?: No Isolation: Standard ROS Review of Systems Constitutional: No Symptoms Reported Eyes: No Symptoms Reported ENTM: No Symptoms Reported Respiratoy: See HPI and Non-Productive Cough Cardiovascular: No Symptoms Reported; negative Chest Pain, Palpitations or Syncope Gastrointestinal/Abdominal: No Symptoms Reported Genitourinary: No Symptoms Reported Neurological: No Symptoms Reported Musculoskeletal: No Symptoms Reported Integumentary: No Symptoms Reported Hematologic/Lymphatic: No Symptoms Reported Endocrine: No Symptoms Reported Psychiatric: No Symptoms Reported All Other Systems: Reviewed and Negative PE Vital Signs Vitals: Vital Signs Temperature 98.4 F Pulse Rate 77 Pulse Rate 78 Pulse Rate 77 Pulse Rate 77 Pulse Rate 79 Pulse Rate 80 Pulse Rate 89 Pulse Rate 86 Pulse Rate 87 Pulse Rate 82 Pulse Rate 92 Pulse Rate 84 Pulse Rate 86 Pulse Rate 91 Pulse Rate 111 Pulse Rate 99 Respiratory Rate 20 Respiratory Rate 17 Respiratory Rate 16 Respiratory Rate 17 Respiratory Rate 32 Respiratory Rate 25 Respiratory Rate 31 Respiratory Rate 41 Respiratory Rate 28 Respiratory Rate 31 Respiratory Rate 39 Respiratory Rate 19 Respiratory Rate 20 Respiratory Rate 25 Respiratory Rate 26 Respiratory Rate 38 Blood Pressure 94/53 Blood Pressure 90/54 Blood Pressure 86/50 Blood Pressure 94/55 Blood Pressure 92/50 Blood Pressure 80/41 Blood Pressure 87/51 Blood Pressure 81/45 Blood Pressure 96/55 Blood Pressure 76/43 Blood Pressure 78/41 Blood Pressure 80/48 Blood Pressure 80/49 Blood Pressure 77/49 Blood Pressure 80/41 Blood Pressure 80/41 Blood Pressure 86/84 O2 Sat by Pulse Oximetry 99 O2 Sat by Pulse Oximetry 98 O2 Sat by Pulse Oximetry 100 O2 Sat by Pulse Oximetry 99 O2 Sat by Pulse Oximetry 98 O2 Sat by Pulse Oximetry 97 O2 Sat by Pulse Oximetry 99 O2 Sat by Pulse Oximetry 98 O2 Sat by Pulse Oximetry 98 O2 Sat by Pulse Oximetry 100 O2 Sat by Pulse Oximetry 96 O2 Sat by Pulse Oximetry 95 O2 Sat by Pulse Oximetry 93 O2 Sat by Pulse Oximetry 91 O2 Sat by Pulse Oximetry 79 O2 Sat by Pulse Oximetry 100 General Limitations: No Limitations General Appearance: Alert and In No Apparent Distress Head Head Exam: Normal Inspection Eyes Eye exam: Normal Appearance ENT ENT Exam: Normal Exam Neck Neck Exam: Normal Inspection Chest Chest Inspection: Normal Inspection Respiratory Respiratory Exam: Normal Lung Sounds Bilat Respiratory Exam: Bilateral: Wheezing Cardiovascular Cardiovascular Exam: Regular Rate and Normal Rhythm Abdominal Exam Abdominal Exam: Normal Inspection, Normal Bowel Sounds and Soft Extremities Extremities Exam: Normal Inspection Back Back Exam: Normal Inspection Neurologic Neurological Exam: Alert and Oriented X3 Psychiatric Psychiatric Exam: Normal Affect and Normal Mood Skin Skin Exam: Warm, Dry, Intact and Normal Color COURSE Treatment Treatment: Patient has had some improvement with breathing treatments. Blood pressure has maintained a MAP of 67 with BP of 90/47. Found to be dehydrated. Gentle fluids due to CHF. Consultation Called: 14:59 Consultation Comments: Discussed case with Dr. Parsons. He is agreeable to admission. [facility]OR Labs Reviewed 02/16/24 10:54 02/16/24 10:54 Laboratory: WBC 15.2 X10^3/uL (3.6-10.0) H 02/16/24 10:54 RBC 3.75 X10^6/uL (3.5-5.4) 02/16/24 10:54 Hgb 11.3 g/dL (12.0-16.0) L 02/16/24 10:54 Hct 34.1 % (36.0-47.0) L 02/16/24 10:54 MCV 90.8 fL (80.0-100.0) 02/16/24 10:54 MCH 30.1 pg (27.0-34.0) 02/16/24 10:54 MCHC 33.2 g/dL (33.0-35.0) 02/16/24 10:54 RDW 15.8 % (11.6-16.5) 02/16/24 10:54 Plt Count 163 X10^3/uL (150.0-450.0) 02/16/24 10:54 Plt Count Comment Adequate (ADEQUATE) 02/16/24 10:54 MPV 7.0 fL (7.4-11.0) L 02/16/24 10:54 Neut % (Auto) 93.7 % (42.0-75.0) H 02/16/24 10:54 Lymph % (Auto) 3.1 % (21.0-51.0) L 02/16/24 10:54 [place] % (Auto) 2.9 % (0.0-13.0) 02/16/24 10:54 Eos % (Auto) 0.0 % (0.9-2.9) L 02/16/24 10:54 Baso % (Auto) 0.3 % (0.2-1.0) 02/16/24 10:54 Neut # (Auto) 14.2 x10^3/uL (2.2-4.8) H 02/16/24 10:54 Lymph # (Auto) 0.5 X10^3/uL (1.3-2.9) L 02/16/24 10:54 [place] # (Auto) 0.4 x10^3/uL (0.3-0.8) 02/16/24 10:54 Eos # (Auto) 0.0 x10^3/uL (0.0-0.2) 02/16/24 10:54 Baso # (Auto) 0.0 X10^3/uL (0.0-0.1) 02/16/24 10:54 Absolute Nucleated RBC 0.0 /100WBC 02/16/24 10:54 Total Counted 100 02/16/24 10:54 Neutrophils % (Manual) 95 % (39-76) H 02/16/24 10:54 Lymphocytes % (Manual) 3 % (13-43) L 02/16/24 10:54 Monocytes % (Manual) 2 % (4-9) L 02/16/24 10:54 Plt Morphology Comment Normal (NORMAL) 02/16/24 10:54 RBC Morphology Normal (NORMAL) 02/16/24 10:54 PT 15.0 SECONDS (11.8-14.3) 02/16/24 10:54 INR Target Range - 02/16/24 10:54 INR 1.20 (0.8-1.3) 02/16/24 10:54 APTT 33.9 SECONDS (22.9-36.5) 02/16/24 10:54 PTT Comment - 02/16/24 10:54 Sample Site Rrad 02/16/24 12:35 ABG pH 7.330 (7.35-7.45) L 02/16/24 12:35 ABG pCO2 41.0 mmHg (35.0-45.0) 02/16/24 12:35 ABG pO2 76.0 mmHg (80.0-100.0) L 02/16/24 12:35 ABG HCO3 21.6 mmol/L (22-26) L 02/16/24 12:35 ABG O2 Saturation 94.0 % (90-100) 02/16/24 12:35 ABG Base Excess -4.1 mmol/L (-2.0-2.0) L 02/16/24 12:35 Konstantin Test Pos 02/16/24 12:35 A-a Gradient 129.0 mmHg 02/16/24 12:35 FiO2 36.0 02/16/24 12:35 Blood Gas Comments rusty well ms 02/16/24 12:35 Sodium 139 mmol/L (136-145) 02/16/24 10:54 Corrected Sodium 140 mmol/L (136-145) 02/16/24 10:54 Potassium 3.9 mmol/L (3.5-5.1) 02/16/24 10:54 Chloride 102 mmol/L (98-107) 02/16/24 10:54 Carbon Dioxide 23.8 mmol/L (21-32) 02/16/24 10:54 BUN 35 mg/dL (7-18) H 02/16/24 10:54 Creatinine 2.15 mg/dL (0.55-1.02) H 02/16/24 10:54 Est GFR (MDRD) Af Amer 30 (>60) L 02/16/24 10:54 Est GFR (MDRD) Non-Af 25 (>60) L 02/16/24 10:54 Glucose 152 mg/dL (65-99) H 02/16/24 10:54 Lactic Acid 1.8 mmol/L (0.4-2.0) 02/16/24 11:58 Calcium 8.0 mg/dL (8.5-10.1) L 02/16/24 10:54 Corrected Calcium TNP 02/16/24 10:54 Magnesium 2.3 mg/dL (2.0-2.9) 02/16/24 10:54 Total Bilirubin 0.20 mg/dL (0.2-1.0) 02/16/24 10:54 AST 45 Units/L (15-37) H 02/16/24 10:54 ALT 24 Units/L (12-78) 02/16/24 10:54 Alkaline Phosphatase 72 Units/L (46-116) 02/16/24 10:54 Troponin I High Sens 8.8 ng/L (4.0-60.0) 02/16/24 10:54 Total Protein 7.6 g/dL (6.4-8.2) 02/16/24 10:54 Albumin 3.5 g/dL (3.4-5.0) 02/16/24 10:54 Globulin 4.1 g/dL (2.5-4.5) 02/16/24 10:54 Albumin/Globulin Ratio 0.9 Ratio (1.1-2.1) L 02/16/24 10:54 Specimen Type Clean catch urine 02/16/24 14:35 Urine Color Pale yellow (YELLOW) 02/16/24 14:35 Urine Appearance Clear (CLEAR) 02/16/24 14:35 Urine pH 6.0 (5.0 - 8.0) 02/16/24 14:35 Ur Specific [place] 1.020 (1.000-1.030) 02/16/24 14:35 Urine Protein 2+ (NEGATIVE) 02/16/24 14:35 Urine Glucose (UA) Negative (NEGATIVE) 02/16/24 14:35 Urine Ketones Negative (NEGATIVE) 02/16/24 14:35 Urine Blood 4+ (NEGATIVE) 02/16/24 14:35 Urine Nitrite Negative (NEGATIVE) 02/16/24 14:35 Urine Bilirubin Negative (NEGATIVE) 02/16/24 14:35 Urine Urobilinogen Normal (NORMAL) 02/16/24 14:35 Ur Leukocyte Esterase Negative (NEGATIVE) 02/16/24 14:35 Urine RBC 0-2 /HPF (0-3) 02/16/24 14:35 Urine WBC 3-5 /HPF (0-5) 02/16/24 14:35 Ur Squamous Epith Cells Few /HPF (NEGATIVE) 02/16/24 14:35 Urine Bacteria Trace /HPF (NEGATIVE) 02/16/24 14:35 Urine Mucus Rare /HPF (NEGATIVE) 02/16/24 14:35 Ur Culture Indicated? No/not indicated 02/16/24 14:35 Urine Opiates Screen Positive (NEG=<300) A 02/16/24 14:35 Urine Methadone Screen Negative (NEG=<300) 02/16/24 14:35 Ur Barbiturates Screen Negative (NEG=<200) 02/16/24 14:35 Ur Phencyclidine Scrn Negative (NEG=<25) 02/16/24 14:35 Ur Amphetamines Screen Negative (NEG=<1000) 02/16/24 14:35 U Benzodiazepines Scrn Negative (NEG=<200) 02/16/24 14:35 Urine Cocaine Screen Negative (NEG=<300) 02/16/24 14:35 U Marijuana (THC) Screen Negative (NEG=<50) 02/16/24 14:35 SARS-CoV-2 (PCR) Negative (NEGATIVE) 02/16/24 11:00 Influenza Type A (PCR) Positive (NEGATIVE) A 02/16/24 11:00 Influenza Type B (PCR) Negative (NEGATIVE) 02/16/24 11:00 RSV (PCR) Negative (NEGATIVE) 02/16/24 11:00 Opioid Opioid Risk Tool Age (Jose M box if 16-45): No History of Preadolescent Sexual Abuse: No Total: 0 Total Score Risk Category: Low Risk Copyright: Calle predicting aberrant behaviors Discharge Plan Diagnosis Discharge Problem: Influenza A, CHF (congestive heart failure), Acute hypoxic respiratory failure, Acute on chronic kidney failure, Dehydration, Drug abuse Discharge Plan Patient Disposition: 09 ADMITTED INPATIENT Condition: Stable Prescriptions: No Action amoxicillin-pot clavulanate 875-125 mg tablet 1 tab PO Q12H 7 Days Qty: 14 0RF Rx Instructions: take with food methylprednisolone 4 mg tablets,dose pack See Rx Instructions PO PER PKG DIR Qty: 21 0RF Rx Instructions: PO PER PKG DIR aspirin [Cassy Low Dose Aspirin] 81 mg Tablet,Delayed Release (Dr/Ec) 81 mg PO DAILY spironolactone 25 mg Tablet 25 mg PO DAILY carvedilol 3.125 mg Tablet 3.125 mg PO BID ropinirole 0.5 mg Tablet 0.5 mg PO QHS furosemide 20 mg Tablet 20 mg PO BID Anoro Ellipta 62.5-25 mcg/actuation Blister With Device 1 inh INHALATION DAILY Entresto 24-26 mg Tablet 1 tab PO BID [id number] [Fioricet] 50-300-40 mg capsule 1 cap PO Q4-6H MDD 4 PRNQty: 12 0RF loratadine [Claritin] 10 mg tablet 10 mg PO QDAY Qty: 20 0RF rosuvastatin [Crestor] 20 mg Tablet 20 mg PO HS hydrocodone-acetaminophen 5-325 mg tablet 1 tab PO Q8H MDD 3 PRNQty: 10 0RF Health Concerns: Post Hospitalization: new medications and changes needed to prevent readmission or further decline. Pt educated and given instructions on all concerns. Plan of Treatment: Continue with present treatment and follow up plan. Pt is to keep follow up appointment as instructed and take medications as ordered. Orders to Discharge Patient Discharge Orders: Transfer (Routine); Ordered 02/16/24 Ordered By: Cyril Fuentes Follow ups/Referrals Follow ups/Referrals: NFD,None [Primary Care Provider] - 3 days Instructions Stand Alone Forms: Find Help Web Site, Post Hospital Follow Up Care
[2024-02-16 11:33] LABS: PLATELET MORPHOLOGY COMMENT NORMAL (NORMAL)
--- NOTE | 2024-02-16 11:35 | RAD ---
EXAM:CHEST, 1 VIEWHISTORY:SOB;COMPARISON:Prior study or studies were utilized for comparison during interpretation with the most relevant dated 12/27/2021TECHNIQUE:CHEST, 1 VIEWFINDINGS:Chest:Lines and tubes: Cardiac leads overlie the chest.Mediastinum: Cardiac and mediastinal shadow is within normal limits for size and contour.Pulmonary vessels: No pulmonary vascular congestion.Lung meneses: Interstitial markings and hyperinflation of the lungs with diaphragmatic flattening.Pleura: No effusion. No pneumothorax.Bones and soft tissues: No acute osseous or soft tissue abnormality.IMPRESSION:1. No acute cardiopulmonary abnormality2. Stigmata of COPDTHIS IS AN ELECTRONICALLY VERIFIED FINAL [id number]/16/2024 11:31 AM - Electronically signed by Mann Yusuf MD
[2024-02-16 11:38] LABS: MAGNESIUM 2.3 mg/dL (2.0-2.9)
--- NOTE | 2024-02-16 11:48 | EKG ---
Test Reason : short of breath Blood Pressure : */* mmHG Vent. Rate : 86 BPM Atrial Rate : 86 BPM P-R Int : 130 ms QRS Dur : 88 ms QT Int : 368 ms P-R-T Axes : 79 51 82 degrees QTc Int : 440 ms Normal sinus rhythm Possible Left atrial enlargement Septal infarct (cited on or before 20-MAY-2023) Abnormal ECG When compared with ECG of 20-MAY-2023 20:56, Vent. rate has increased BY 35 BPM Nonspecific T wave abnormality now evident in Inferior leads Nonspecific T wave abnormality now evident in Lateral leads Confirmed by Hira Orellana MD ([id number]) on 02/17/2024 7:21:14 AM Referred By: Confirmed By: Hira Orellana MD
[2024-02-16 12:39] LABS: ABG ALLEN TEST POS; ABG BASE EXCESS -4.1 mmol/L (-2.0-2.0); ABG HCO3 21.6 mmol/L (22-26)
[2024-02-16 14:39] LABS: BILIRUBIN,URINE NEGATIVE (NEGATIVE); BLOOD/HEMOGLOBIN,URINE 4+ (NEGATIVE); GLUCOSE, URINE NEGATIVE (NEGATIVE); KETONES,URINE NEGATIVE (NEGATIVE); LEUKOCYTE ESTERASE ,URINE NEGATIVE (NEGATIVE); NITRITES,URINE NEGATIVE (NEGATIVE); PROTEIN,URINE 2+ (NEGATIVE); UROBILINOGEN,URINE NORMAL (NORMAL)
[2024-02-16 14:41] LABS: APPEARANCE,URINE CLEAR (CLEAR); COLOR,URINE PALE YELLOW (YELLOW)
[2024-02-16 14:47] LABS: BACTERIA,URINE TRACE /HPF (NEGATIVE); RBC,URINE 0-2 /HPF (0-3); SQUAMOUS EPITHELIAL CELL,UR FEW /HPF (NEGATIVE)
[2024-02-16] MEDS: TAMIFLU PO SCH (15:15)
[2024-02-16] MEDS: NS 1,000 ML IV 1,000 ML ONE (16:16)
[2024-02-16] MEDS: NS 1,000 ML IV 1,000 ML IV SCH (16:49)
[2024-02-16] MEDS: NORCO 5/325 MG TAB PO PRN (16:52)
[2024-02-16] MEDS: PULMICORT NEB TX 0.5 MG NEB SCH (20:06)
[2024-02-16] MEDS: DUONEB 0.5 MG/3 MG (3 mL) NEB SCH (20:06)
[2024-02-16] MEDS: SOLU-Medrol 40 MG VIAL IVP SCH (21:06)
[2024-02-16] MEDS: ASCORBIC ACID INJ MULTI-DOSE VIAL 1,500 MG in NS 100 ML IV 100 ML IV SCH (21:06)
[2024-02-16] MEDS: RESTORIL CAP 15 MG PO PRN (21:06)
[2024-02-16] MEDS: ZINC SULFATE PO SCH (21:06)
[2024-02-17 05:14] LABS: BASOPHILS % (AUTO) 0.2 % (0.2-1.0); HEMOGLOBIN 10.5 g/dL (12.0-16.0); LYMPHOCYTES # (AUTO) 0.3 X10^3/uL (1.3-2.9); LYMPHOCYTES % (AUTO) 2.3 % (21.0-51.0); MEAN CORPUSCULAR HEMOGLOBIN 30.5 pg (27.0-34.0); MEAN CORPUSCULAR HGB CONC 33.8 g/dL (33.0-35.0); MEAN CORPUSCULAR VOLUME 90.1 fL (80.0-100.0); MEAN PLATELET VOLUME 7.4 fL (7.4-11.0); MONOCYTES # (AUTO) 0.4 x10^3/uL (0.3-0.8); MONOCYTES % (AUTO) 2.7 % (0.0-13.0); NEUTROPHILS # (AUTO) 12.4 x10^3/uL (2.2-4.8); NEUTROPHILS % (AUTO) 94.8 % (42.0-75.0); PLATELET COUNT 176 X10^3/uL (150.0-450.0); RED BLOOD COUNT 3.44 X10^6/uL (3.5-5.4); RED CELL DISTRIBUTION WIDTH 16.2 % (11.6-16.5)
[2024-02-17 05:27] LABS: ALBUMIN 2.7 g/dL (3.4-5.0); CALCIUM 7.2 mg/dL (8.5-10.1); CARBON DIOXIDE 23.8 mmol/L (21-32); COR CA(FOR HYPOALB) 8.2 mg/dL (8.5-10.1); CREATININE 1.39 mg/dL (0.55-1.02); POTASSIUM 3.6 mmol/L (3.5-5.1); TOTAL PROTEIN 6.7 g/dL (6.4-8.2)
[2024-02-17 05:37] LABS: BAND NEUTROPHILS % 10 % (0-10); PLATELET MORPHOLOGY COMMENT NORMAL (NORMAL)
[2024-02-17] MEDS ORDERED: CONSULT PHARMACY - POTASSIUM & MAGNESIUM XX SCH (08:00)
[2024-02-17 08:13] VITALS: BMI 19.7
[2024-02-17] MEDS ORDERED: VALIUM INJ IM PRN (08:50)
--- NOTE | 2024-02-17 09:03 | RAD ---
EXAM: AP chest HISTORY: Hypoxia COMPARISON: 02/16/2024 FINDINGS: Heart size normal with pulmonary hyperinflation and mild chronic interstitial coarsening. There is no evidence for superimposed pneumonia, CHF or pleural fluid. IMPRESSION: No change or acute findings. THIS IS AN ELECTRONICALLY VERIFIED FINAL REPORT 02/17/2024 9:00 AM - Electronically signed by Donnell Em MD
[2024-02-17] MEDS: PEPCID TAB 20 MG PO SCH (10:24)
[2024-02-17] MEDS: K-DUR TAB 20 MEQ PO NR (10:25)
[2024-02-17] MEDS: LOVENOX INJ 30 MG SYR SC SCH (10:26)
[2024-02-17] MEDS: NICOTINE PATCH TD SCH (10:43)
[2024-02-17] MEDS: ROCEPHIN VIAL 1 GRAM 1 G in NS 100 ML IV 100 ML IV SCH (10:44)
[2024-02-17] MEDS: ZITHROMAX INJ 500 MG VIAL 500 MG in NS 250 ML IV 250 ML IV SCH (10:46)
[2024-02-17] MEDS: VALIUM INJ IVP PRN (12:44)
[2024-02-17] MEDS: ASPIRIN EC 81 MG PO SCH (12:45)
[2024-02-17] MEDS: COREG TAB 3.125 MG PO SCH (12:45)
[2024-02-17] MEDS: VALIUM INJ ONE (14:04)
[2024-02-17] MEDS ORDERED: TYLENOL 325 MG TAB PO PRN (17:09)
[2024-02-17] MEDS: VISTARIL PO PRN (19:55)
[2024-02-17] MEDS: NS 100 ML IV 0 ML ONE (19:58)
[2024-02-17] MEDS ORDERED: NS 100 ML IV 100 ML ONE (20:22)
[2024-02-17] MEDS: CRESTOR TAB 10 MG PO SCH (21:10)
[2024-02-17] MEDS: ENTRESTO 24/26 MG TABLET PO SCH (21:10)
[2024-02-17] MEDS: PULMICORT NEB TX 0.5 MG NEB ONE (22:49)
[2024-02-18 05:27] LABS: BASOPHILS % (AUTO) 0.1 % (0.2-1.0); HEMATOCRIT 28.2 % (36.0-47.0); HEMOGLOBIN 9.7 g/dL (12.0-16.0); LYMPHOCYTES # (AUTO) 0.4 X10^3/uL (1.3-2.9); LYMPHOCYTES % (AUTO) 4.2 % (21.0-51.0); MEAN CORPUSCULAR HEMOGLOBIN 30.9 pg (27.0-34.0); MEAN CORPUSCULAR HGB CONC 34.3 g/dL (33.0-35.0); MEAN PLATELET VOLUME 7.7 fL (7.4-11.0); MONOCYTES # (AUTO) 0.3 x10^3/uL (0.3-0.8); NEUTROPHILS # (AUTO) 8.8 x10^3/uL (2.2-4.8); NEUTROPHILS % (AUTO) 92.7 % (42.0-75.0); PLATELET COUNT 163 X10^3/uL (150.0-450.0); RED BLOOD COUNT 3.13 X10^6/uL (3.5-5.4); RED CELL DISTRIBUTION WIDTH 16.6 % (11.6-16.5); WHITE BLOOD COUNT 9.5 X10^3/uL (3.6-10.0)
[2024-02-18 05:46] LABS: ALANINE AMINOTRANSFERASE 20 Units/L (12-78); ALBUMIN 2.3 g/dL (3.4-5.0); ALKALINE PHOSPHATASE 49 Units/L (46-116); ASPARTATE AMINO TRANSFERASE 54 Units/L (15-37); BLOOD UREA NITROGEN 22 mg/dL (7-18); CARBON DIOXIDE 23.6 mmol/L (21-32); CHLORIDE 112 mmol/L (98-107); COR CA(FOR HYPOALB) 8.4 mg/dL (8.5-10.1); COR NA(FOR HYPERGLY) 147 mmol/L (136-145); CREATININE 1.14 mg/dL (0.55-1.02); GLUCOSE 129 mg/dL (65-99); POTASSIUM 3.4 mmol/L (3.5-5.1); SODIUM 146 mmol/L (136-145); TOTAL PROTEIN 5.9 g/dL (6.4-8.2); eGFR NON BLACK RACES 51 (>60)
[2024-02-18 06:07] LABS: BAND NEUTROPHILS % 11 % (0-10); PLATELET MORPHOLOGY COMMENT NORMAL (NORMAL)
[2024-02-18 06:31] VITALS: RESP 20
[2024-02-18] MEDS ORDERED: K-DUR TAB 20 MEQ PO SCH (08:00)
[2024-02-18] MEDS ORDERED: CONSULT PHARMACY - POTASSIUM & MAGNESIUM XX SCH (08:00)
--- NOTE | 2024-02-18 08:43 | DR.H&P ---
H&P History & Physical for Day of: H&P Date: 02/17/24 Chief Complaint Chief Complaint: "I don't remember what happened yesterday, but I was having trouble breathing." History of Present Illness History of Present Illness: Marsha Lind is a 63 patient who presented with influenza type A. She does not recall the events leading to her ER visit but reports experiencing difficulty breathing. She has been receiving treatment for dehydration with IV fluids, which has improved her hydration status, though she remains somewhat dehydrated. Marsha denies any pain in her lungs or chest when breathing deeply. She reports lower back pain, which is severe, but does not recall any chronic pain history there. She does not have a history of diabetes or high blood pressure and is unsure about having heart stents. She normally takes hydrocodone for pain management at home. Past Medical History Past Medical History: Alzheimers, Anxiety, CHF, Coronary Artery Disease, Dementia, Dyslipidemia and Hypertension Past Surgical History Surgical History: Hysterectomy and Ortho Surgery Family History Family Medical History: Cancer Social History Does patient currently use any type of tobacco product: Yes Have you used tobacco products in the last 12 months: Yes Type of Tobacco Use: Cigarettes How many years tobacco product used: 46 Does any household member use tobacco: Yes Alcohol Use: Other Drug Use: Prescription Drugs and Methamphetamine Medications Home Medications: Home Medications Medication Instructions Recorded Confirmed Type aspirin 81 mg tablet,delayed 81 mg PO DAILY 09/15/20 02/17/24 History release (Cassy Low Dose Aspirin) carvedilol 3.125 mg tablet 3.125 mg PO BID 09/15/20 02/17/24 History sacubitril 24 mg-valsartan 26 mg 0.5 tab PO BID 09/15/20 02/17/24 History tablet (Entresto) rosuvastatin 20 mg tablet (Crestor) 20 mg PO HS 11/24/21 02/17/24 History albuterol sulfate 90 mcg/actuation 90 inh inhalation Q6H 02/17/24 02/17/24 History aerosol inhaler (Ventolin HFA) Allergies Allergies Allergy/AdvReac Type Severity Reaction Status Date / Time No Known Drug Allergies Allergy Verified 02/16/24 16:15 Labs 02/18/24 04:25 02/18/24 04:25 Labs: Laboratory WBC 13.0 X10^3/uL (3.6-10.0) H 02/17/24 04:45 RBC 3.44 X10^6/uL (3.5-5.4) L 02/17/24 04:45 Hgb 10.5 g/dL (12.0-16.0) L 02/17/24 04:45 Hct 31.0 % (36.0-47.0) L 02/17/24 04:45 MCV 90.1 fL (80.0-100.0) 02/17/24 04:45 MCH 30.5 pg (27.0-34.0) 02/17/24 04:45 MCHC 33.8 g/dL (33.0-35.0) 02/17/24 04:45 RDW 16.2 % (11.6-16.5) 02/17/24 04:45 Plt Count 176 X10^3/uL (150.0-450.0) 02/17/24 04:45 Plt Count Comment Adequate (ADEQUATE) 02/17/24 04:45 MPV 7.4 fL (7.4-11.0) 02/17/24 04:45 Neut % (Auto) 94.8 % (42.0-75.0) H 02/17/24 04:45 Lymph % (Auto) 2.3 % (21.0-51.0) L 02/17/24 04:45 [place]eadle % (Auto) 2.7 % (0.0-13.0) 02/17/24 04:45 Eos % (Auto) 0.0 % (0.9-2.9) L 02/17/24 04:45 Baso % (Auto) 0.2 % (0.2-1.0) 02/17/24 04:45 Neut # (Auto) 12.4 x10^3/uL (2.2-4.8) H 02/17/24 04:45 Lymph # (Auto) 0.3 X10^3/uL (1.3-2.9) L 02/17/24 04:45 [place]eadle # (Auto) 0.4 x10^3/uL (0.3-0.8) 02/17/24 04:45 Eos # (Auto) 0.0 x10^3/uL (0.0-0.2) 02/17/24 04:45 Baso # (Auto) 0.0 X10^3/uL (0.0-0.1) 02/17/24 04:45 Absolute Nucleated RBC 0.0 /100WBC 02/17/24 04:45 Total Counted 100 02/17/24 04:45 Neutrophils % (Manual) 87 % (39-76) H 02/17/24 04:45 Band Neutrophils % 10 % (0-10) 02/17/24 04:45 Lymphocytes % (Manual) 1 % (13-43) L 02/17/24 04:45 Monocytes % (Manual) 2 % (4-9) L 02/17/24 04:45 Plt Morphology Comment Normal (NORMAL) 02/17/24 04:45 RBC Morphology Normal (NORMAL) 02/17/24 04:45 PT 15.0 SECONDS (11.8-14.3) 02/16/24 10:54 INR Target Range - 02/16/24 10:54 INR 1.20 (0.8-1.3) 02/16/24 10:54 APTT 33.9 SECONDS (22.9-36.5) 02/16/24 10:54 PTT Comment - 02/16/24 10:54 Sample Site Rrad 02/16/24 12:35 ABG pH 7.330 (7.35-7.45) L 02/16/24 12:35 ABG pCO2 41.0 mmHg (35.0-45.0) 02/16/24 12:35 ABG pO2 76.0 mmHg (80.0-100.0) L 02/16/24 12:35 ABG HCO3 21.6 mmol/L (22-26) L 02/16/24 12:35 ABG O2 Saturation 94.0 % (90-100) 02/16/24 12:35 ABG Base Excess -4.1 mmol/L (-2.0-2.0) L 02/16/24 12:35 Konstantin Test Pos 02/16/24 12:35 A-a Gradient 129.0 mmHg 02/16/24 12:35 FiO2 36.0 02/16/24 12:35 Blood Gas Comments rusty well ms 02/16/24 12:35 Sodium 144 mmol/L (136-145) 02/17/24 04:45 Corrected Sodium 145 mmol/L (136-145) 02/17/24 04:45 Potassium 3.6 mmol/L (3.5-5.1) 02/17/24 04:45 Chloride 109 mmol/L (98-107) H 02/17/24 04:45 Carbon Dioxide 23.8 mmol/L (21-32) 02/17/24 04:45 BUN 30 mg/dL (7-18) H 02/17/24 04:45 Creatinine 1.39 mg/dL (0.55-1.02) H 02/17/24 04:45 Est GFR (MDRD) Af Amer 49 (>60) L 02/17/24 04:45 Est GFR (MDRD) Non-Af 41 (>60) L 02/17/24 04:45 Glucose 137 mg/dL (65-99) H 02/17/24 04:45 Lactic Acid 1.8 mmol/L (0.4-2.0) 02/16/24 11:58 Calcium 7.2 mg/dL (8.5-10.1) L 02/17/24 04:45 Corrected Calcium 8.2 mg/dL (8.5-10.1) L 02/17/24 04:45 Magnesium 2.3 mg/dL (2.0-2.9) 02/16/24 10:54 Total Bilirubin 0.20 mg/dL (0.2-1.0) 02/17/24 04:45 AST 46 Units/L (15-37) H 02/17/24 04:45 ALT 23 Units/L (12-78) 02/17/24 04:45 Alkaline Phosphatase 62 Units/L (46-116) 02/17/24 04:45 Troponin I High Sens 8.8 ng/L (4.0-60.0) 02/16/24 10:54 Total Protein 6.7 g/dL (6.4-8.2) 02/17/24 04:45 Albumin 2.7 g/dL (3.4-5.0) L 02/17/24 04:45 Globulin 4.0 g/dL (2.5-4.5) 02/17/24 04:45 Albumin/Globulin Ratio 0.7 Ratio (1.1-2.1) L 02/17/24 04:45 Specimen Type Clean catch urine 02/16/24 14:35 Urine Color Pale yellow (YELLOW) 02/16/24 14:35 Urine Appearance Clear (CLEAR) 02/16/24 14:35 Urine pH 6.0 (5.0 - 8.0) 02/16/24 14:35 Ur Specific [place] 1.020 (1.000-1.030) 02/16/24 14:35 Urine Protein 2+ (NEGATIVE) 02/16/24 14:35 Urine Glucose (UA) Negative (NEGATIVE) 02/16/24 14:35 Urine Ketones Negative (NEGATIVE) 02/16/24 14:35 Urine Blood 4+ (NEGATIVE) 02/16/24 14:35 Urine Nitrite Negative (NEGATIVE) 02/16/24 14:35 Urine Bilirubin Negative (NEGATIVE) 02/16/24 14:35 Urine Urobilinogen Normal (NORMAL) 02/16/24 14:35 Ur Leukocyte Esterase Negative (NEGATIVE) 02/16/24 14:35 Urine RBC 0-2 /HPF (0-3) 02/16/24 14:35 Urine WBC 3-5 /HPF (0-5) 02/16/24 14:35 Ur Squamous Epith Cells Few /HPF (NEGATIVE) 02/16/24 14:35 Urine Bacteria Trace /HPF (NEGATIVE) 02/16/24 14:35 Urine Mucus Rare /HPF (NEGATIVE) 02/16/24 14:35 Ur Culture Indicated? No/not indicated 02/16/24 14:35 Urine Opiates Screen Positive (NEG=<300) A 02/16/24 14:35 Urine Methadone Screen Negative (NEG=<300) 02/16/24 14:35 Ur Barbiturates Screen Negative (NEG=<200) 02/16/24 14:35 Ur Phencyclidine Scrn Negative (NEG=<25) 02/16/24 14:35 Ur Amphetamines Screen Negative (NEG=<1000) 02/16/24 14:35 U Benzodiazepines Scrn Negative (NEG=<200) 02/16/24 14:35 Urine Cocaine Screen Negative (NEG=<300) 02/16/24 14:35 U Marijuana (THC) Screen Negative (NEG=<50) 02/16/24 14:35 SARS-CoV-2 (PCR) Negative (NEGATIVE) 02/16/24 11:00 Influenza Type A (PCR) Positive (NEGATIVE) A 02/16/24 11:00 Influenza Type B (PCR) Negative (NEGATIVE) 02/16/24 11:00 RSV (PCR) Negative (NEGATIVE) 02/16/24 11:00 Review of Systems Constitutional: Chills, Weakness and Malaise Eyes: No Symptoms Reported ENT: No Symptoms Reported Respiratory: Cough, Shortness of Breath, SOB with Excertion, Sputum and Wheezing Cardiovascular: No Symptoms Reported Gastrointestinal: No Symptoms Reported Genitourinary: No Symptoms Reported Musculoskeletal: Back Pain Skin: No Symptoms Reported Neurological: No Symptoms Reported Physical Exam Vital Signs: Vital Signs Temperature 97.9 F Temperature 98.7 F Temperature 98.7 F Pulse Rate 87 Pulse Rate 92 Pulse Rate 83 Pulse Rate 106 Pulse Rate 98 Respiratory Rate 24 Respiratory Rate 24 Respiratory Rate 26 Respiratory Rate 24 Respiratory Rate 28 Blood Pressure 115/62 Blood Pressure 125/85 O2 Sat by Pulse Oximetry 96 O2 Sat by Pulse Oximetry 96 O2 Sat by Pulse Oximetry 97 O2 Sat by Pulse Oximetry 93 O2 Sat by Pulse Oximetry 91 Oriented: Not Oriented Eyes: Normal Nose: Normal Respiratory: Diminished Throughout and Rhonchi Throughout Cardiovascular: Normal Auscultation: Bowel Sounds: Normal Palpation: Normal Tenderness: Normal Skin: Decreased Turgur Musculoskeletal: Back:Lumbar, Back:Midline and Tender Psychiatric: Anxiety Mood Description: Anxious Affect: Anxious Speech Pattern: Appropriate Assessment/Plan (1) Influenza A: Status: Acute (2) Acute hypoxic respiratory failure: Status: Acute (3) Dehydration: Status: Acute Plan: Marsha Lind is diagnosed with influenza type A and dehydration. The plan includes continuing IV fluids to improve hydration status and managing pain with appropriate medications. A chest x-ray is ordered to further evaluate respiratory status. Consideration for additional diagnostic tests such as sputum culture may be warranted if symptoms persist. Follow-up with primary care or specialist as needed based on test results and symptom progression. Add Rocephin & Zithromax. Review H&P Reviewed: Yes Patient was examined?: Yes
--- NOTE | 2024-02-18 09:37 | RAD ---
EXAM:CHEST x-ray two viewsHISTORY:RESPIRATORY FAILURE -COMPARISON:X-ray 02/17/2024FINDINGS:There is COPD. There is a small right pleural effusion. There is cardiomegaly that is probably new. No pulmonary venous congestion is seen. No pulmonary edema or pneumothorax is seen.IMPRESSION:Increasing heart size is seen without evidence of CHF.There is development of a small right pleural effusion.THIS IS AN ELECTRONICALLY VERIFIED FINAL [id number]/2024 9:33 AM - Electronically signed by Robin Chavez MD
[2024-02-18 11:25] VITALS: BP 127/78; PULSE 72; TEMP 98.2; O2SAT 95
== END 2024-02-18 11:50 | disposition home or self-care (01) | DRG 193 ==
LOC: ER 10:27 → ICU 15:12 → MED/SURG 02-17 15:20
PROVIDERS: ADMIT Family Medicine; ATTEND Family Medicine
DX: J96.01 Acute respiratory failure with hypoxia; Z29.89 Encounter for other specified prophylactic measures; R94.31 Abnormal electrocardiogram [ECG] [EKG]; I25.10 Atherosclerotic heart disease of native coronary artery without angina pectoris; J10.1 Influenza due to other identified influenza virus with other respiratory manifestations; F11.90 Opioid use, unspecified, uncomplicated; N18.9 Chronic kidney disease, unspecified; I50.9 Heart failure, unspecified; E86.0 Dehydration; Z03.818 Encounter for observation for suspected exposure to other biological agents ruled out; N17.8 Other acute kidney failure; Z72.0 Tobacco use; Z59.86 Financial insecurity; M54.59 Other low back pain; B96.3 Hemophilus influenzae [H. influenzae] as the cause of diseases classified elsewhere; E78.5 Hyperlipidemia, unspecified; I12.9 Hypertensive chronic kidney disease with stage 1 through stage 4 chronic kidney disease, or unspecified chronic kidney disease